=== PATIENT | male | born 1985 | race Caucasian/White ===

== ENCOUNTER 2018-07-21 15:43 | Inpatient (IN) | payer BC, OTHER ==
[2018-07-21 15:47] VITALS: BMI 19.5
--- NOTE | 2018-07-21 16:05 | ED PDOC ---
Arrival/HPI - General Time Seen by Provider: 07/21/18 15:45 Historian: Patient - History of Present Illness Narrative History of Present Illness (Text): 07/21/18 15:50 33 year old male, with no significant past medical history, who presents to the Emergency department after two seizures at 12:00 and 15:00. Patient notes he passed out at noon today and his mom brought him into the Emergency department after it happened the second time at 15:00. Patient is young, healthy, has no past medical history, not taking any medications and has no known drug allergies. Patient presented to the Emergency department for further evaluation. Patient denies any fever, chills, chest pain, shortness of breath, nausea, vomiting, diarrhea, urinary symptoms, back pain, neck pain, or any other complaints. Time/Duration: Prior to Arrival (seizures/syncopal episodes occurred at 12:00 and 15:00) Symptom Onset: Sudden Symptom Course: Unchanged Quality: Other Activities at Onset: Light Context: Home Past Medical History - Provider Review Nursing Documentation Reviewed: Yes Family/Social History - Physician Review Nursing Documentation Reviewed: Yes Family/Social History: No Known Family HX Allergies/Home Meds Allergies/Adverse Reactions: Allergies lactose Allergy (Verified 07/21/18 15:47) DIARRHEA Home Medications: Home Meds Medication Instructions Recorded Confirmed No Known Home Med 07/21/18 07/21/18 Review of Systems - Physician Review All systems were reviewed & negative as marked: Yes - Review of Systems Constitutional: Normal. absent: Fevers Eyes: Normal ENT: Normal Respiratory: Normal. absent: SOB, Cough Cardiovascular: Normal Gastrointestinal: Normal. absent: Diarrhea, Nausea, Vomiting Genitourinary Male: Normal Musculoskeletal: Normal. absent: Back Pain, Neck Pain Skin: Normal Neurological: Seizure. absent: Normal Endocrine: Normal Hemo/Lymphatic: Normal Psychiatric: Normal Physical Exam Vital Signs Reviewed: Yes Vital Signs Temp Pulse Resp BP Pulse Ox 07/21/18 19:13 95 H 18 121/71 100 07/21/18 16:56 122 H 26 H 99 07/21/18 16:13 99.3 F 97 H 18 108/66 97 07/21/18 15:49 99.3 F 97 H 18 108/66 97 Temperature: Afebrile Blood Pressure: Normal Pulse: Tachycardic Respiratory Rate: Normal Appearance: Positive for: Well-Appearing, Non-Toxic Pain Distress: None Mental Status: Positive for: Alert and Oriented X 3 Finger Stick Blood Glucose: 146 - Systems Exam Head: Present: Normocephalic, Other (multiple hematomas on forehead) Pupils: Present: PERRL Extroacular Muscles: Present: EOMI Conjunctiva: Present: Normal Mouth: Present: Moist Mucous Membranes Neck: Present: Normal Range of Motion Respiratory/Chest: Present: Clear to Auscultation, Good Air Exchange. No: Respiratory Distress, Accessory Muscle Use Cardiovascular: Present: Regular Rate and Rhythm, Normal S1, S2. No: Murmurs Abdomen: No: Tenderness, Distention, Peritoneal Signs Back: Present: Normal Inspection Upper Extremity: Present: Normal Inspection. No: Cyanosis, Edema Lower Extremity: Present: Normal Inspection. No: Edema Neurological: Present: GCS=15, CN II-XII Intact, Speech Normal Skin: Present: Warm, Dry, Other (multiple hematomas on forehead and one on his mandible). No: Rashes Psychiatric: Present: Alert, Oriented x 3, Normal Insight, Normal Concentration Medical Decision Making ED Course and Treatment: 07/21/18 15:45 Impression: 33 year old male presents to the Emergency department after two seizures at 12:00 and 15:00. Differential Diagnosis included but are not limited to: described as seizure, seems to be syncope Plan: -- Labs -- CT of head w/o contrast -- CT of maxillofacial w/o contrast -- EKG -- X-Ray of chest -- Reassess and disposition Progress Notes: EKG: Ordered, reviewed, and independently interpreted the EKG. Interpretation : NSR at [address] of maxillofacial reviewed by radiologist, shows: Dictator : Anca Davies MD Report Date : 07/21/2018 16:51:01 FINDINGS: NASAL BONES: No acute fracture. ORBITS: Both globes are symmetric. No acute fracture. PARANASAL SINUSES/ MASTOIDS: Mild polypoid mucosal thickening in the maxillary alveolus, worse on the right. The remaining included paranasal sinuses and mastoid air cells are clear. MAXILLA: No acute maxillofacial fracture. MANDIBLE/ TEMPOROMANDIBULAR JOINTS: No acute fracture or dislocation. SKULL BASE: Unremarkable. TEMPORAL BONES: Middle ears and mastoid grossly unremarkable. OTHER FINDINGS: None. IMPRESSION: No acute fracture or dislocation. CT of head reviewed by radiologist, shows: FINDINGS: HEMORRHAGE: No intracranial hemorrhage. BRAIN: Berger-white matter differentiation is preserved. There is no mass, mass effect or abnormal extra-axial fluid collection. There is no territorial infarction. The midline sagittal structures are normal. VENTRICLES: The ventricles are normal in size, shape and configuration. CALVARIUM: There is no calvarial fracture or extracranial soft tissue swelling. PARANASAL SINUSES: Predominantly clear. MASTOID AIR CELLS: Predominantly clear. OTHER FINDINGS: None. IMPRESSION: No acute intracranial abnormality. X-Ray of chest reviewed by radiologist, shows: Dictator : Anca Davies MD Report Date : 07/21/2018 16:45:57 FINDINGS: LUNGS: The lungs are well inflated and clear. PLEURA: No pneumothorax or pleural fluid seen. CARDIOVASCULAR: Normal. OSSEOUS STRUCTURES: No significant abnormalities. VISUALIZED UPPER ABDOMEN: Normal. OTHER FINDINGS: None. IMPRESSION: No active pulmonary disease. 07/21/2018 16:50 Patient had a seizure. Gave him Ativan and a gram of Keppra. Got consent from his mother to do a LP. 07/21/18 17:[address] Hernández, who requests patient to get a MRI done with and without contrast and administer acyclovir and valproic acid. Requests to perform a lumbar puncture for fluids. Mother was made aware and permission received from mother to perform LP. 07/21/18 19:40 PROCEDURE: LUMBAR PUNCTURE Performed by the emergency provider Time: 19:30 Consent: Informed consent, after discussion of the risks, benefits, and alternatives to the procedure, was obtained from mother. Timeout: A timeout to verify the correct patient, procedure, and site was performed immediately prior to the procedure. Indication: New onset of seizure Patient's position: Sitting up. Anesthesia: Local anesthesia: 1% lidocaine plain. Preparation: Patient was prepped and draped in the usual sterile fashion and sterile technique was used. The landmarks were identified. Fluid appearance: Fluid achieved in first attempt. Appears Clear. Post-procedure: Site cleansed and adhesive bandage applied. The patient tolerated the procedure well with no immediate complications. CSF was sent to lab for analysis. - Lab Interpretations Lab Results: 07/21/18 16:00 07/21/18 16:00 Lab Results 07/21/18 17:20: Total Creatine Kinase 797 H, CK-MB (CK-2) 3.5, CK-MB (CK-2) % Cancelled 07/21/18 16:00: Urine Color Straw, Urine Appearance Clear, Urine pH 6.0, Ur Specific [place] >= 1.030, Urine Protein 100 H, Urine Glucose (UA) Negative, Urine Ketones Trace H, Urine Blood Moderate H, Urine Nitrate Negative, Urine Bilirubin Negative, Urine Urobilinogen 0.2, Ur Leukocyte Esterase Negative, Urine RBC 10 - 15, Urine WBC 1 - 3, Ur Epithelial Cells 1 - 3, Urine Bacteria Mod, Urine Other Usperm 07/21/18 16:00: Alcohol, Quantitative < 10 07/21/18 16:00: Urine Opiates Screen Negative, Urine Methadone Screen Negative, Ur Barbiturates Screen Negative, Ur Phencyclidine Scrn Negative, Ur Amphetamines Screen Negative, U Benzodiazepines Scrn Negative, U Oth Cocaine Metabols Negative, U Cannabinoids Screen Negative 07/21/18 16:00: Sodium 143, Chloride 104, Potassium 4.1, Carbon Dioxide 24, Anion Gap 19, BUN 18, Creatinine 1.0, Est GFR ( Amer) > 60, Est GFR (Non- Af Amer) > 60, Random Glucose 143 H, Calcium 9.5, Phosphorus 2.1 L, Magnesium 2.1, Total Bilirubin 1.5 H, AST 147 H, ALT 124 H, Alkaline Phosphatase 80, Total Protein 7.5, Albumin 4.5, Globulin 3.0, Albumin/Globulin Ratio 1.5 07/21/18 16:00: pO2 36, VBG pH 7.36, VBG pCO2 46.0, VBG HCO3 26.0, VBG Total CO2 27.4, VBG O2 Sat (Calc) 78.2 H, VBG Base Excess 0.1, VBG Potassium 4.0, Sodium 139.0, Chloride 104.0, Glucose 148 H, Lactate 4.0 H*, FiO2 21.0, Venous Blood Potassium 4.0 07/21/18 16:00: PT 12.8 H, INR 1.12 07/21/18 16:00: WBC 10.4, RBC 4.54, Hgb 12.3 L, Hct 37.4 L, MCV 82.4, MCH 27.1, MCHC 32.9, RDW 13.2, Plt Count 185, MPV 10.1, Gran % 87.5 H, Lymph % (Auto) 5.4 L, Ellis % (Auto) 6.8 H, Eos % (Auto) 0.2 L, Baso % (Auto) 0.1, Gran # 9.08 H, Lymph # (Auto) 0.6 L, Ellis # (Auto) 0.7 H, Eos # (Auto) 0.0, Baso # (Auto) 0.01 - RAD Interpretation Radiology Orders: 07/21/18 15:48 HEAD W/O CONTRAST [CT] Stat CHEST ONE VIEW [RAD] Stat 07/21/18 15:55 MAXILLOFACIAL W/O CONTRAST [CT] Stat 07/21/18 17:19 BRAIN W & WO CONTRAST [MRI] Stat - EKG Interpretation Interpreted by ED Physician: Yes Type: 12 lead EKG - Medication Orders Current Medication Orders: Acyclovir 600 mg/ Sodium (Chloride) 100 mls @ 100 mls/hr IV Q8 JONI PRN Reason: Protocol Levetiracetam (Keppra 500mg Ivpb) 500 mg in 100 mls @ 400 mls/hr IVPB Q12 JONI Lorazepam (Ativan) 2 mg IVP Q2H PRN; Protocol PRN Reason: Seizure activity Discontinued Medications Sodium Chloride (Sodium Chloride 0.9%) 1,000 mls @ 999 mls/hr IV .Q1H1M STA Stop: 07/21/18 17:13 Last Admin: 07/21/18 16:46 Dose: 999 mls/hr eMAR Start Stop Document 07/21/18 16:46 GMD (Rec: 07/21/18 16:47 GMD [id number]) Intravenous Solution Start Date 07/21/18 Start Time 16:47 End Date 07/21/18 End time 17:48 Total Infusion Time 61 Levetiracetam 1,000 mg/ Sodium (Chloride) 110 mls @ 440 mls/hr IV ONCE ONE Stop: 07/21/18 17:16 Last Admin: 07/21/18 17:13 Dose: 440 mls/hr eMAR Start Stop Document 07/21/18 17:13 GMD (Rec: 07/21/18 17:13 [facility] [id number]) Intravenous Solution Start Date 07/21/18 Start Time 17:13 End Date 07/21/18 End time 17:28 Total Infusion Time 15 Acyclovir 500 mg/ Sodium (Chloride) 100 mls @ 100 mls/hr IV STAT STA PRN Reason: Protocol Stop: 07/21/18 18:13 Last Admin: 07/21/18 17:53 Dose: 100 mls/hr eMAR Start Stop Document 07/21/18 17:53 GMD (Rec: 07/21/18 17:54 GM [id number]) Intravenous Solution Start Date 07/21/18 Start Time 17:54 End Date 07/21/18 End time 18:54 Total Infusion Time 60 Valproate Sodium 945 mg/ (Sodium Chloride) 109.45 mls @ 100 mls/hr IVPB Q8 JONI Valproate Sodium 945 mg/ (Sodium Chloride) 109.45 mls @ 100 mls/hr IVPB ONCE ONE Stop: 07/21/18 19:05 Lorazepam (Ativan) 2 mg IVP ONCE ONE PRN Reason: Protocol Stop: 07/21/18 16:59 Last Admin: 07/21/18 16:59 Dose: 2 mg IVP Administration Document 07/21/18 16:59 GMD (Rec: 07/21/18 16:59 D [id number]) Charges for Administration # of IVP Administrations 1 - Scribe Statement The provider has reviewed the documentation as recorded by the Scribe Vero Cobian All medical record entries made by the Brendaibgilbert were at my direction and personally dictated by me. I have reviewed the chart and agree that the record accurately reflects my personal performance of the history, physical exam, medical decision making, and the department course for this patient. I have also personally directed, reviewed, and agree with the discharge instructions and disposition. Disposition/Present on Arrival - Present on Arrival Any Indicators Present on Arrival: No History of DVT/PE: No History of Uncontrolled Diabetes: No Urinary Catheter: No History of Decub. Ulcer: No History Surgical Site Infection Following: None - Disposition Have Diagnosis and Disposition been Completed?: Yes Diagnosis: New onset seizure Disposition Time: 19:00 Patient Plan: Admission Patient Problems: Current Active Problems Problem Status Onset New onset seizure Acute Condition: FAIR Referrals: Taz Toro, [Primary Care Provider] - Follow up with primary
[2018-07-21] MEDS ORDERED: Sodium Chloride 0.9% 1,000 ML IV STA (16:13)
[2018-07-21 16:27] LABS: VENOUS BLOOD GAS BASE EXCESS 0.1 mmol/L (0.0-2.0); VENOUS BLOOD GAS PO2 36 mm/Hg (30-55); VENOUS BLOOD PH 7.36 (7.32-7.43)
[2018-07-21 16:32] LABS: ALB/GLOB RATIO 1.5 (1.1-1.8); ALBUMIN 4.5 g/dL (3.0-4.8); ALT/SGPT 124 U/L (7-56); AST/SGOT 147 U/L (17-59); BLOOD UREA NITROGEN 18 mg/dL (7-21); CALCIUM 9.5 mg/dL (8.4-10.5); GFR NON-AFRICAN AMERICAN > 60
[2018-07-21 16:38] LABS: BASO # 0.01 K/mm3 (0.0-2.0); BASO % 0.1 % (0.0-3.0); EOS % 0.2 % (1.5-5.0); GRAN # 9.08 (1.4-6.5); GRAN % 87.5 % (50.0-68.0); HEMOGLOBIN 12.3 g/dL (14.0-18.0); LYMPH # 0.6 (1.2-3.4); LYMPH % 5.4 % (22.0-35.0); MEAN CELL VOLUME 82.4 fl (80.0-105.0); MEAN CORPUSCULAR HEMOGLOBIN 27.1 pg (25.0-35.0); MEAN CORPUSCULAR HGB CONC 32.9 g/dl (31.0-37.0); MEAN PLATELET VOLUME 10.1 fl (7.0-11.0); MONO # 0.7 (0.1-0.6); MONO % 6.8 % (1.0-6.0); RBC 4.54 10^6/uL (3.5-6.1); RED CELL DISTRIBUTION WIDTH 13.2 % (11.5-14.5); WHITE BLOOD COUNT 10.4 10^3/ul (4.5-11.0)
[2018-07-21 16:41] LABS: INR 1.12; PROTHROMBIN TIME 12.8 SECONDS (9.4-12.5)
--- NOTE | 2018-07-21 16:47 | RAD ---
Date of service: 07/21/2018 PROCEDURE: CHEST RADIOGRAPH, 1 VIEW HISTORY: Syncope COMPARISON: None available. FINDINGS: LUNGS: The lungs are well inflated and clear. PLEURA: No pneumothorax or pleural fluid seen. CARDIOVASCULAR: Normal. OSSEOUS STRUCTURES: No significant abnormalities. VISUALIZED UPPER ABDOMEN: Normal. OTHER FINDINGS: None. IMPRESSION: No active pulmonary disease.
[2018-07-21 16:48] LABS: BARBITURATES, UR NEGATIVE (NEGATIVE); BENZODIAZEPINES, UR NEGATIVE (NEGATIVE); OPIATES, UR NEGATIVE (NEGATIVE); PHENCYCLIDINE, UR NEGATIVE (NEGATIVE)
--- NOTE | 2018-07-21 16:50 | CT ---
Date of service: 07/21/2018 PROCEDURE: CT HEAD WITHOUT CONTRAST. HISTORY: Syncope COMPARISON: None available. TECHNIQUE: Axial computed tomography images were obtained through the head/brain without intravenous contrast. Radiation dose: Total exam DLP = 974.62 mGy-cm. This CT exam was performed using one or more of the following dose reduction techniques: Automated exposure control, adjustment of the mA and/or kV according to patient size, and/or use of iterative reconstruction technique. FINDINGS: HEMORRHAGE: No intracranial hemorrhage. BRAIN: Berger-white matter differentiation is preserved. There is no mass, mass effect or abnormal extra-axial fluid collection. There is no territorial infarction. The midline sagittal structures are normal. VENTRICLES: The ventricles are normal in size, shape and configuration. CALVARIUM: There is no calvarial fracture or extracranial soft tissue swelling. PARANASAL SINUSES: Predominantly clear. MASTOID AIR CELLS: Predominantly clear. OTHER FINDINGS: None. IMPRESSION: No acute intracranial abnormality.
--- NOTE | 2018-07-21 16:52 | CT ---
Date of service: 07/21/2018 PROCEDURE: CT MAXILLOFACIAL BONES WITHOUT CONTRAST HISTORY: Blunt Trauma COMPARISON: None available. TECHNIQUE: Contiguous axial CT images of the maxillofacial bones were obtained. Coronal and sagittal reformats were generated. Radiation dose: Total exam DLP = 831.34 mGy-cm. This CT exam was performed using one or more of the following dose reduction techniques: Automated exposure control, adjustment of the mA and/or kV according to patient size, and/or use of iterative reconstruction technique. FINDINGS: NASAL BONES: No acute fracture. ORBITS: Both globes are symmetric. No acute fracture. PARANASAL SINUSES/ MASTOIDS: Mild polypoid mucosal thickening in the maxillary alveolus, worse on the right. The remaining included paranasal sinuses and mastoid air cells are clear. MAXILLA: No acute maxillofacial fracture. MANDIBLE/ TEMPOROMANDIBULAR JOINTS: No acute fracture or dislocation. SKULL BASE: Unremarkable. TEMPORAL BONES: Middle ears and mastoid grossly unremarkable. OTHER FINDINGS: None. IMPRESSION: No acute fracture or dislocation.
[2018-07-21 17:01] LABS: URINE BILIRUBIN NEGATIVE (NEGATIVE); URINE BLOOD MODERATE (NEGATIVE); URINE GLUCOSE (UA) NEGATIVE (NEGATIVE); URINE LEUKOCYTE ESTERASE NEGATIVE Leu/uL (NEGATIVE); URINE PROTEIN 100 mg/dL (<30 mg/dL); URINE UROBILINOGEN 0.2 E.U./dL (<1 E.U./dL)
[2018-07-21] MEDS ORDERED: levETIRAcetam 1,000 MG in Sodium Chloride 0.9% 100 ML IV ONE (17:02)
[2018-07-21] MEDS ORDERED: Acyclovir 500 MG in Sodium Chloride 0.9% 100 ML IV STA (17:14)
[2018-07-21 17:28] LABS: URINE APPEARANCE CLEAR (CLEAR); URINE COLOR STRAW (YELLOW)
[2018-07-21 17:35] LABS: URINE BACTERIA MOD (NEG)
[2018-07-21] MEDS ORDERED: SODIUM CHLORIDE 0.9% IVPB ONE (18:00)
[2018-07-21] MEDS ORDERED: VALPROATE IVPB ONE (18:00)
[2018-07-21] MEDS ORDERED: Gadodiamide 287 MG/ML VIAL (15ML) IV ONE (18:26)
[2018-07-21 18:46] LABS: CK-MB 3.5 ng/mL (0.0-3.6)
[2018-07-21] MEDS ORDERED: Lidocaine PF 2% (5 ml) Inj (For Cardiac Arrhy) ONE (19:23)
[2018-07-21 19:42] LABS: FLUID TYPE SPINAL FLUID
[2018-07-21 20:09] LABS: VENOUS BLOOD GAS BASE EXCESS -0.6 mmol/L (0.0-2.0); VENOUS BLOOD GAS PO2 50 mm/Hg (30-55); VENOUS BLOOD PH 7.35 (7.32-7.43)
--- NOTE | 2018-07-21 20:27 | CP.PCM.HP ---
<Erasto Sharma - Last Filed: 07/21/18 20:24> History of Present Illness - History of Present Illness History of Present Illness: Erasto Sharma PGY1 H&P Mr. Jaime is a 33M with no PMH presenting to ED s/p 2 witnessed seizures. His mom witnessed 2 seizures 3 hours apart at home, when patient went stiff and fell down and hit his head. He denies previous h/o seizures and has no recollection of seizure episodes today. He reports feeling nauseous before episodes. He also reports history of cold-like illness this past week and subject fever. He denies any chest pain, dizziness, shortness of breath, numbness, tingling, abdominal pain, vomiting, diarrhea, dysuria. PMH: none PSxH: none FamH: mom- HTN, dad- parkinsons, DM SocH: denies tobacco, etoh, recreational drug use PMD: Dr. Toro Present on Admission - Present on Admission Any Indicators Present on Admission: No Review of Systems - Constitutional Constitutional: Fever. absent: Headache - EENT Eyes: absent: Blurred Vision - Cardiovascular Cardiovascular: absent: Chest Pain, Dyspnea - Respiratory Respiratory: absent: Dyspnea - Gastrointestinal Gastrointestinal: Nausea. absent: Abdominal Pain, Vomiting - Genitourinary Genitourinary: absent: Dysuria - Musculoskeletal Musculoskeletal: Stiffness. absent: Numbness, Tingling Past Patient History - Infectious Disease Hx of Infectious Diseases: None - Past Social History Smoking Status: Never Smoked - PSYCHIATRIC Hx Substance Use: No - SURGICAL HISTORY Hx Surgeries: No - ANESTHESIA Hx Anesthesia: No Meds Allergies/Adverse Reactions: Allergies Allergy/AdvReac Type Severity Reaction Status Date / Time lactose Allergy DIARRHEA Verified 07/21/18 15:47 Physical Exam - Constitutional Appears: No Acute Distress - Head Exam Additional comments: laceration and hematoma on L forehead - Eye Exam Pupil Exam: NORMAL ACCOMODATION - ENT Exam ENT Exam: Mucous Membranes Moist - Neck Exam Neck exam: Negative for: Meningismus, Tenderness - Respiratory Exam Respiratory Exam: Clear to Auscultation Bilateral, NORMAL BREATHING PATTERN - Cardiovascular Exam Cardiovascular Exam: REGULAR RHYTHM, +S1 - GI/Abdominal Exam GI & Abdominal Exam: Normal Bowel Sounds, Soft. absent: Distended, Tenderness - Extremities Exam Extremities exam: Positive for: normal inspection. Negative for: calf tenderness, pedal edema - Back Exam Back exam: NORMAL INSPECTION - Neurological Exam Neurological exam: Alert, CN II-XII Intact, Oriented x3 Additional comments: Kernig and Burdzinski signs negative - Psychiatric Exam Psychiatric exam: Flat Affect - Skin Skin Exam: Normal Color Results - Vital Signs Recent Vital Signs: Last Vital Signs Temp 99.3 F 07/21/18 16:13 Pulse 95 H 07/21/18 19:13 Resp 18 07/21/18 19:13 BP 121/71 07/21/18 19:13 Pulse Ox 100 07/21/18 19:13 - Labs Result Diagrams: 07/21/18 16:00 07/21/18 16:00 Labs: Laboratory Results - last 24 hr 07/21/18 07/21/18 07/21/18 19:30 19:30 19:53 pO2 50 VBG pH 7.35 VBG pCO2 46.0 VBG HCO3 25.4 VBG Total CO2 26.8 VBG O2 Sat (Calc) 89.6 H VBG Base Excess -0.6 L VBG Potassium 3.5 L Sodium 140.0 Chloride 108.0 H Glucose 110 Lactate 1.2 FiO2 21.0 Venous Blood Potassium 3.5 L Fluid Type Spinal fluid CSF Glucose 79 H Assessment & Plan - Assessment and Plan (Free Text) Assessment: 33M with no PMH presents s/p 2 witnessed seizures, admitted for r/o encephalopathy. Plan: Seizures: - 2 witnessed seizures at home, as per mom, no previous hx - 1 seizure in ED - CT head: no acute intracranial abnormality - CXR: no active pulmonary disease - MRI brain: f/u reading - afebrile - WBC: 10.4 - Glucose: 123 - UDS: negative - UA: mod blood, protein 100 (high) - LP: champagne color, glucose 79 (high), f/u remaining LP labs - f/u BCx, CSF Cx, UCx, throat Cx - f/u hep panel - f/u folate, B12 - f/u HSV, [place], VDRL, HIV, CMV labs - keppra 500 q12 - ativan 2 q2 IV PRN - acyclovir 600 q8h - seizure precautions - aspiration precautions - Neuro consulted, Dr. Dhillon - f/u recs - ID consulted, f/u recs Hypophosphatemia: - Phoph: 2.1 - replete - monitor Case reviewed and discussed with Dr. Gardner <Valencia Patel R - Last Filed: 07/22/18 13:28> Results - Vital Signs Recent Vital Signs: Last Vital Signs Temp 98.2 F 07/22/18 06:00 Pulse 103 H 07/22/18 06:00 Resp 18 07/22/18 06:00 BP 100/51 L 07/22/18 06:00 Pulse Ox 95 07/22/18 06:00 - Labs Result Diagrams: 07/22/18 06:30 07/22/18 06:30 Labs: Laboratory Results - last 24 hr 07/21/18 07/21/18 07/21/18 19:30 19:30 19:53 WBC RBC Hgb Hct MCV MCH MCHC RDW Plt Count MPV Gran % Lymph % (Auto) Armstrong % (Auto) Eos % (Auto) Baso % (Auto) Gran # Lymph # (Auto) Armstrong # (Auto) Eos # (Auto) Baso # (Auto) pO2 50 VBG pH 7.35 VBG pCO2 46.0 VBG HCO3 25.4 VBG Total CO2 26.8 VBG O2 Sat (Calc) 89.6 H VBG Base Excess -0.6 L VBG Potassium 3.5 L Sodium 140.0 Chloride 108.0 H Glucose 110 Lactate 1.2 FiO2 21.0 Potassium Carbon Dioxide Anion Gap BUN Creatinine Est GFR ( Amer) Est GFR (Non-Af Amer) Random Glucose Calcium Phosphorus Magnesium Total Bilirubin AST ALT Alkaline Phosphatase Total Creatine Kinase CK-MB (CK-2) CK-MB (CK-2) % Total Protein Albumin Globulin Albumin/Globulin Ratio Vitamin B12 Folate Venous Blood Potassium 3.5 L Fluid Type Spinal fluid CSF Volume 2 H CSF Appearance Clear/colorless CSF WBC 2.2 CSF RBC 1.0 H CSF Total Cell Counted 0 CSF Monos/Macrophages TEST NOT PERFORMED CSF Comment No CSF Glucose 79 H CSF Total Protein 55.0 07/22/18 07/22/18 07/22/18 06:30 06:30 06:30 WBC 12.4 H RBC 4.61 Hgb 12.3 L Hct 38.1 L MCV 82.6 MCH 26.7 MCHC 32.3 RDW 13.3 Plt Count 172 MPV 10.6 Gran % 79.0 H Lymph % (Auto) 8.6 L Armstrong % (Auto) 11.2 H Eos % (Auto) 1.0 L Baso % (Auto) 0.2 Gran # 9.77 H Lymph # (Auto) 1.1 L Armstrong # (Auto) 1.4 H Eos # (Auto) 0.1 Baso # (Auto) 0.02 pO2 VBG pH VBG pCO2 VBG HCO3 VBG Total CO2 VBG O2 Sat (Calc) VBG Base Excess VBG Potassium Sodium 144 Chloride 107 Glucose Lactate FiO2 Potassium 3.7 Carbon Dioxide 26 Anion Gap 14 BUN 15 Creatinine 0.8 Est GFR ( Amer) > 60 Est GFR (Non-Af Amer) > 60 Random Glucose 87 Calcium 9.0 Phosphorus 2.6 Magnesium 2.2 Total Bilirubin 2.5 H AST 102 H D ALT 93 H Alkaline Phosphatase 78 Total Creatine Kinase 2238 H CK-MB (CK-2) 5.8 H CK-MB (CK-2) % 0.3 L Total Protein 6.8 Albumin 3.8 Globulin 2.9 Albumin/Globulin Ratio 1.3 Vitamin B12 > 1000 H Folate 16.2 Venous Blood Potassium Fluid Type CSF Volume CSF Appearance CSF WBC CSF RBC CSF Total Cell Counted CSF Monos/Macrophages CSF Comment CSF Glucose CSF Total Protein Attending/Attestation - Attestation I have personally seen and examined this patient.: Yes I have fully participated in the care of the patient.: Yes I have reviewed all pertinent clinical information: Yes Notes (Text): Patient seen and examined by me at 5:00PM with resident 07/21/18. Case including HPI, physical exam, and assessment and plan discussed with resident. Agree with above with following additions/corrections. Patient is a 33-year-old male with no significant past medical history that presented to the emergency room status post witnessed seizures at home. Patient also had seizure while in the ED. Patient's mother at bedside. Patient lethargic and confused. History taken from patient's mother. Mother states that the morning patient came down stairs and mother noticed that patient had some abrasion and wounds on forehead. Patient was unsure how he these wounds. Later mother was helping patient make his bed when patient per mother started to "shake, twist his head, neck, and arms." Patient was brought to the emergency room at which time patient was witnessed to have another seizure. Per patient's mother patient was complaining of not feeling well since 07/19/2018. Patient had been complaining of cold-like symptoms. Patient had also been complaining of headache. Her patient's mother, patient lost displaced this morning and had a loss of appetite. Patient is currently denying any pain. Patient did bite his tongue. There was no urinary or bowel incontinence. Unable to obtain full review of systems from patient secondary to patient being lethargic and confused. In the emergency room, patient had lumbar puncture done. Allergies: Lactose Family history: Mother alive and has history of hypertension. Father alive and has type 2 diabetes and Parkinson's disease. Medications at home: [id number] multivitamin Physical exam: General: Lethargic but arousable, lying in bed in no acute distress HEENT: Positive abrasions and mild edema above bilateral eyebrows. Pupils equal reactive. No scleral icterus. Oropharynx is pink and moist. Positive right lateral tongue wound. Neck is supple. Hearing grossly intact. Ears and nose externally unremarkable Cardiovascular: Tachycardic S1, S2. No murmurs, rubs, or gallops appreciated Pulmonary: Normal respiratory effort. No rhonchi, rales or wheezing appreciated. Gastrointestinal: Soft, nondistended. Nontender. Positive bowel sounds all 4 quadrants, no guarding. Musculoskeletal: Normal range of motion all extremities, no calf tenderness, no edema appreciated. Central nervous system: Lethargic but arousable. Unable to do full neuro exam secondary to patient being lethargic and confused. Dermatologic: Skin warm and dry Assessment and plan: Patient is a 33-year-old male with no significant past medical history that presented to the emergency room status post witnessed seizures at home 1. New onset seizures. CT head per radiologist shows no acute intracranial abnormality. Maxillofacial CT per radiologist shows no acute fracture or dislocation. Patient had lumbar punch in the emergency room, follow-up results. Rule out infection. Follow up blood cultures, urine culture, and throat culture. Follow-up HIV. Follow-up CSF cultures. Started on Keppra 500 mg IV every 12 hours. Placed on Ativan 2 mg every 2 hours when necessary. Started on acyclovir 600 mg IV every 8 hours for possible encephalitis. Placed on seizure and aspiration precautions. Neurology consulted, follow-up recommendations. Case was discussed in detail with the patient and patient's at bedside regarding current diagnosis and treatment plan. 2. Hypophosphatemia. Will replete. Follow-up repeat labs in a.m. 3. Anemia. Unsure of baseline H&H. Continue to monitor for now. 4. Elevated LFTs. Unclear etiology. Follow up repeat labs in a.m. Follow-up hepatitis panel. 5. Elevated CPK. Likely secondary to seizure. Placed on IV fluids. Follow up repeat labs in a.m. Case was discussed in detail with patient's mother at bedside regarding current diagnosis and treatment plan.
[2018-07-21 20:29] LABS: CSF APPEARANCE CLEAR/COLORLESS (CLEAR); CSF VOLUME 2 mL (0-1)
[2018-07-21 20:30] LABS: CSF WBC 2.2 /uL (0.0-5.0)
[2018-07-21] MEDS ORDERED: SODIUM CHLORIDE 0.9% IVPB SCH (22:00)
[2018-07-21] MEDS ORDERED: levETIRAcetam 500 MG in Sodium Chloride 0.9% 100 ML IV SCH (22:00)
[2018-07-21] MEDS ORDERED: VALPROATE IVPB SCH (22:00)
[2018-07-21] MEDS: levETIRAcetam 500mg IVPB 500 MG/100 ML BAG IVPB SCH (22:12)
[2018-07-22 07:03] LABS: BASO # 0.02 K/mm3 (0.0-2.0); BASO % 0.2 % (0.0-3.0); EOS # 0.1 (0.0-0.7); GRAN # 9.77 (1.4-6.5); HEMOGLOBIN 12.3 g/dL (14.0-18.0); LYMPH # 1.1 (1.2-3.4); LYMPH % 8.6 % (22.0-35.0); MEAN CELL VOLUME 82.6 fl (80.0-105.0); MEAN CORPUSCULAR HEMOGLOBIN 26.7 pg (25.0-35.0); MEAN CORPUSCULAR HGB CONC 32.3 g/dl (31.0-37.0); MEAN PLATELET VOLUME 10.6 fl (7.0-11.0); MONO # 1.4 (0.1-0.6); MONO % 11.2 % (1.0-6.0); RBC 4.61 10^6/uL (3.5-6.1); RED CELL DISTRIBUTION WIDTH 13.3 % (11.5-14.5); WHITE BLOOD COUNT 12.4 10^3/ul (4.5-11.0)
[2018-07-22 07:25] LABS: ALB/GLOB RATIO 1.3 (1.1-1.8); ALBUMIN 3.8 g/dL (3.0-4.8); ALT/SGPT 93 U/L (7-56); AST/SGOT 102 U/L (17-59); BLOOD UREA NITROGEN 15 mg/dL (7-21); GFR NON-AFRICAN AMERICAN > 60
[2018-07-22 08:44] LABS: CK MB% 0.3 % (2.5-3.0); CK-MB 5.8 ng/mL (0.0-3.6)
--- NOTE | 2018-07-22 08:51 | MRI ---
Date of service: 07/21/2018 PROCEDURE: MRI BRAIN WITH AND WITHOUT CONTRAST HISTORY: nEW oNSET sEIZURE dISORDER COMPARISON: 07/21/2018 CT brain TECHNIQUE: Multiplanar, multisequence MR images of the brain were obtained with and without intravenous contrast enhancement. FINDINGS: HEMORRHAGE: None DWI: No evidence of an acute or early subacute infarction. BRAIN PARENCHYMA: No mass,mass effect or edema. No atrophy or chronic microvascular ischemic changes. ENHANCEMENT: No abnormal intracranial enhancement. VENTRICLES: Unremarkable. No hydrocephalus. CRANIUM: Unremarkable. ORBITS: Grossly unremarkable. PARANASAL SINUSES/MASTOIDS: Clear VASCULAR SYSTEM: Skull base flow voids intact. OTHER FINDINGS: None . IMPRESSION: Unremarkable pre and post contrast enhanced MRI of the brain.
[2018-07-22] MEDS: levETIRAcetam 500mg IVPB 500 MG/100 ML BAG IVPB SCH ×2 (09:42→21:10)
--- NOTE | 2018-07-22 11:25 | CARD ---
APPROVED REPORT Date of service: 07/21/2018 EKG Measurement Heart [id number] <Conclusion> Normal sinus rhythm Normal ECG
[2018-07-22 12:26] LABS: HEPATITIS B SURFACE AG Negative (NEGATIVE)
[2018-07-22 12:32] LABS: HEPATITIS A IGM NEGATIVE (NEGATIVE); HEPATITIS B CORE AB NEGATIVE (NEGATIVE)
[2018-07-22 12:44] LABS: HEPATITIS C ANTIBODY NEGATIVE (NEGATIVE)
[2018-07-22 13:05] LABS: FOLATE 16.2 ng/mL
--- NOTE | 2018-07-22 14:06 | CP.PCM.PN ---
<FredaKellen andersonkaren - Last Filed: 07/22/18 14:38> Subjective - Date & Time of Evaluation Date of Evaluation: 07/22/18 Time of Evaluation: 14:16 - Subjective Subjective: Myron Reynaga, PGY-1 Progress Note for Hospitalist Service Patient seen and examined at bedside this morning. No acute events overnight. Denies any seizures overnight and denies any current complaints including CP, SOB, abdominal pain, headaches, extremity weakness, numbness and tingling. Objective - Vital Signs/Intake and Output Vital Signs (last 24 hours): Temp Pulse Resp BP Pulse Ox 98.2 F 103 H 18 100/51 L 95 07/22/18 06:00 07/22/18 06:00 07/22/18 06:00 07/22/18 06:00 07/22/18 06:00 Intake and Output: 07/22/18 07/22/18 06:59 18:59 Intake Total 200 240 Balance 200 240 - Medications Medications: Current Medications Acyclovir 600 mg/ Sodium (Chloride) 100 mls @ 100 mls/hr IV Q8 JONI PRN Reason: Protocol Last Admin: 07/22/18 05:33 Dose: 100 mls/hr Levetiracetam (Keppra 500mg Ivpb) 500 mg in 100 mls @ 400 mls/hr IVPB Q12 JONI Last Admin: 07/22/18 09:42 Dose: 400 mls/hr Sodium Chloride (Sodium Chloride 0.9%) 1,000 mls @ 100 mls/hr IV .Q10H JONI Lorazepam (Ativan) 2 mg IVP Q2H PRN; Protocol PRN Reason: Seizure activity - Labs Labs: 07/22/18 06:30 07/22/18 06:30 PT 12.8 SECONDS (9.4-12.5) H 07/21/18 16:00 INR 1.12 07/21/18 16:00 - Constitutional Appears: No Acute Distress - Head Exam Head Exam: ATRAUMATIC Additional comments: left sided bruise noted on anterior forehead - Eye Exam Eye Exam: EOMI Pupil Exam: PERRL - ENT Exam ENT Exam: Mucous Membranes Moist - Neck Exam Neck Exam: Normal Inspection - Respiratory Exam Respiratory Exam: Clear to Ausculation Bilateral. absent: Respiratory Distress - Cardiovascular Exam Cardiovascular Exam: RRR, +S1, +S2 - GI/Abdominal Exam GI & Abdominal Exam: Soft, Normal Bowel Sounds. absent: Distended, Firm, Guarding - Extremities Exam Extremities Exam: Normal Inspection. absent: Joint Swelling - Neurological Exam Neurological Exam: Alert, Awake, CN II-XII Intact, Oriented x3 Neuro motor strength exam: Left Upper Extremity: 5, Right Upper Extremity: 5, Left Lower Extremity: 5, Right Lower Extremity: 5 - Skin Skin Exam: Normal Color, Warm Assessment and Plan - Assessment and Plan (Free Text) Assessment: This is a 33 year old male with no PMH presenting to the hospital for management of first time witnessed seizure of uncertain etiology. Plan: Seizures of unknown etiology -aspiration and seizure precautions -CT head, brain MRI, maxillofacial CT and CXR are unremarkable -EEG pending -keppra 500mg IV q12 -ativan prn -UDS is negative -U/A positive for protein, blood, trace ketones and moderate bacteria -Neurology on consult, Dr. Hernández Encephalitis -LP: significant for glucose of 79 -WBC today is 12.4 from 10.4, afebrile -[place], CMV, EBV, HSV, HIV, FTA-ABS, leptospira, and quantiferon pending -blood culture, throat culture, urine culture and CSF culture pending -hepatitis panel is negative -ID on consult, Dr. Malcolm Elevated lactate - resolved -Lactate on admission was 4, down to 1.2 on 07/21 -Currently on NS @ 100 Hypophosphatemia - resolved -Phosphate on admission was 2.1, today is 2.6 after replacement Case reviewed and discussed with attending, <Valencia Patel R - Last Filed: 07/23/18 07:39> Objective - Vital Signs/Intake and Output Vital Signs (last 24 hours): Temp Pulse Resp BP Pulse Ox 98.2 F 100 H 20 110/69 100 07/22/18 21:46 07/22/18 21:46 07/22/18 21:46 07/22/18 21:46 07/22/18 21:46 Intake and Output: 07/23/18 07/23/18 06:59 18:59 Intake Total 1690 Balance 1690 - Medications Medications: Current Medications Levetiracetam (Keppra 500mg Ivpb) 500 mg in 100 mls @ 400 mls/hr IVPB Q12 JONI Last Admin: 07/22/18 21:10 Dose: 400 mls/hr Sodium Chloride (Sodium Chloride 0.9%) 1,000 mls @ 100 mls/hr IV .Q10H JONI Last Admin: 07/23/18 04:21 Dose: Not Given Lorazepam (Ativan) 2 mg IVP Q2H PRN; Protocol PRN Reason: Seizure activity - Labs Labs: 07/23/18 06:00 07/23/18 06:00 PT 12.8 SECONDS (9.4-12.5) H 07/21/18 16:00 INR 1.12 07/21/18 16:00 Attending/Attestation - Attestation I have personally seen and examined this patient.: Yes I have fully participated in the care of the patient.: Yes I have reviewed all pertinent clinical information, including history, physical exam and plan: Yes Notes (Text): Patient seen and examined by me at 11:35AM with resident 07/22/18. Case including HPI, physical exam, and assessment and plan discussed with resident. Agree with above with following additions/corrections. Patient is a 33-year-old male with no significant past medical history that presented to the emergency room status post witnessed seizures at home. Patient states he is feeling much better today. He does not remember what happened yesterday. He states that he does have a sore throat but no difficulty swallowing. He denies any headaches or dizziness. No fevers or chills. No nausea , vomiting, or abdominal pain. No dysuria. No seizure activity over night. Physical exam: General: Awake and alert, lying in bed in no acute distress HEENT: Positive abrasions and mild edema above bilateral eyebrows. Pupils equal reactive. No scleral icterus. Oropharynx is pink and moist. Positive right lateral tongue wound. Neck is supple. Cardiovascular: Normal rhythm. Normal S1, S2. No murmurs, rubs, or gallops appreciated Pulmonary: Normal respiratory effort. No rhonchi, rales or wheezing appreciated. Gastrointestinal: Soft, nondistended. Nontender. Positive bowel sounds all 4 quadrants, no guarding. Musculoskeletal: Normal range of motion all extremities, no calf tenderness, no edema appreciated. Central nervous system: CN2-12 grossly intact. AAO x 3 Dermatologic: Skin warm and dry Assessment and plan: Patient is a 33-year-old male with no significant past medical history that presented to the emergency room status post witnessed seizures at home 1. New onset seizures. No more seizure activity. EEG pending. Continue Acyclovir and Keppra. MRI brain per radiologist shows unremarkable pre and post contrast enhanced MRI of brain. CT head per radiologist shows no acute intracranial abnormality. Maxillofacial CT per radiologist shows no acute fracture or dislocation. Patient had lumbar punch in the emergency room, follow- up results. Rule out infection. Blood cultures with no growth so far. Urine culture contaminated. Pending throat culture. Pending HIV. Pending CSF cultures. Continue Ativan 2 mg every 2 hours when necessary. Continue seizure and aspiration precautions. Neurology consulted, follow-up recommendations. 2. Hypophosphatemia. Resolved. Continue to monitor. 3. Anemia. Unsure of baseline H&H. Stable. Continue to monitor for now. 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 Continue IV fluids. Follow up repeat labs in AM. 5. Elevated LFTs. Unclear etiology. Downtrending. May be secondary to rhabdo. Hep panel negative. Continue to monitor. Case was discussed in detail with patient and patient's mother at bedside regarding current diagnosis and treatment plan.
[2018-07-22] MEDS: Sodium Chloride 0.9% 1,000 ML IV SCH (19:35)
[2018-07-23] MEDS: Sodium Chloride 0.9% 1,000 ML IV SCH (04:21)
[2018-07-23 06:55] LABS: BASO # 0.02 K/mm3 (0.0-2.0); BASO % 0.2 % (0.0-3.0); EOS # 0.2 (0.0-0.7); EOS % 2.5 % (1.5-5.0); GRAN # 5.75 (1.4-6.5); GRAN % 70.4 % (50.0-68.0); HEMOGLOBIN 12.2 g/dL (14.0-18.0); LYMPH # 1.2 (1.2-3.4); LYMPH % 15.1 % (22.0-35.0); MEAN CELL VOLUME 82.2 fl (80.0-105.0); MEAN CORPUSCULAR HEMOGLOBIN 27.1 pg (25.0-35.0); MEAN PLATELET VOLUME 10.5 fl (7.0-11.0); MONO % 11.8 % (1.0-6.0); RBC 4.5 10^6/uL (3.5-6.1); RED CELL DISTRIBUTION WIDTH 13.1 % (11.5-14.5); WHITE BLOOD COUNT 8.2 10^3/ul (4.5-11.0)
[2018-07-23 07:25] LABS: ALB/GLOB RATIO 1.3 (1.1-1.8); ALBUMIN 3.8 g/dL (3.0-4.8); ALT/SGPT 90 U/L (7-56); AST/SGOT 147 U/L (17-59); BLOOD UREA NITROGEN 11 mg/dL (7-21); CALCIUM 8.6 mg/dL (8.4-10.5); GFR NON-AFRICAN AMERICAN > 60
--- NOTE | 2018-07-23 08:29 | CON ---
Copied To: Alejo Hernández MD Attending MD: Alejo Hernández MD DATE: 07/22/2018 HISTORY OF PRESENT ILLNESS: This is a 33-year-old with no past medical history, came with two episodes of seizure and witnessed by the mother sitting next to him and the patient fell down and was having tonic-clonic movements with tongue bite and also has small hematoma on the forehead. PAST MEDICAL HISTORY: Not significant. SOCIAL HISTORY: Nothing significant. FAMILY HISTORY: Mother has high blood pressure, father with Parkinson's and diabetes. REVIEW OF SYSTEMS: A 10-point review of systems was negative. ALLERGIES: ALLERGIC TO LACTOSE. PHYSICAL EXAMINATION VITAL SIGNS: Blood pressure 120/70. HEENT: Normocephalic, atraumatic. NECK: Supple. NEUROLOGIC: Alert, awake, and oriented x3. No aphasia. Cranial nerves II through XII were tested. Pupils reactive. EOM intact. Visual han full. No facial asymmetry. Tongue midline. Motor examination: Moves all the extremities equally. Tone normal. Deep tendon reflexes are 1+. Both plantars are downgoing. Sensory appears intact. Cerebellar, gait, normal. Workup in progress. Spinal tap results are normal so far. Rest pending and MRI was normal. CAT scan was normal. PLAN: The patient is on Keppra. Workup in progress. We will continue. We will follow up. Alejo Hernández MD
--- NOTE | 2018-07-23 08:49 | CON ---
Copied To: Jame Denis MD Attending MD: Jame Denis MD DATE: 07/22/2018 HISTORY OF PRESENT ILLNESS: The patient was seen earlier today in [id number]. CHIEF COMPLAINT: New seizures x1 day duration. HISTORY OF PRESENT ILLNESS This is a 33-year-old male, [place] born, with no significant past medical history and who was admitted with new onset of seizures. Infectious Disease consultation is requested. Review of system reveals the patient's brother is at the bedside and the mother is at the bedside, who states that the patient was perfectly normal until the patient had seizures. He had not been having any headaches. No fevers, no change in mental status. No chest pain, shortness of breath. There is no cough, hemoptysis, diarrhea or constipation. No back pain, just a sudden onset of new seizures and the patient was admitted. REVIEW OF SYSTEMS: Reveals the patient had as stated with no pulmonary, no GI, no symptoms and no headaches or blurred vision. PAST MEDICAL HISTORY: The patient states he has no past medical history. No surgical history. MEDICATIONS AT HOME: He takes no medications at home. His family is originally from [facility]. He was last in [place] [facility] 3 years ago. He has no exposure to any pets. He was born in [facility] and he does not smoke or drink. No drugs. He lives with his mother. PHYSICAL EXAMINATION: GENERAL: The patient is in bed, awake and alert. No acute distress, answering questions appropriately. VITAL SIGNS: Temperature of 98, blood pressure is 120/70, respiratory rate of 18. It was up to 26 at one point, heart rate of 103. HEENT: Examination of HEENT is unremarkable. NECK: Supple. LUNGS: Have decreased breath sounds. HEART: Normal S1, S2. ABDOMEN: Nontender. No organomegaly. No rebound or guarding. No masses. LABORATORY DATA: Reveals a white count was 10,000, is up to 12,400. Sed rate of 23. Coagulation is unremarkable. Blood gases are noted. Chemistries are reviewed. The patient does have a CPK elevation and total bili is elevated and LFTs are elevated and urinalysis is noted and the patient had spinal fluid which showed 2 wbc's and glucose is 79, protein of 55 and toxicology is noted and serology, RPR is negative. Hepatitis profile is negative. The patient's HIV is pending and microbiology reveals the patient's blood cultures are negative. CSF cultures are negative and urine cultures has multiple species, has contamination. Repeat specimens and the patient had an MRI of the brain which was with and without contrast, which was completely negative MRI pre and post contrast enhanced, and the patient also had a CAT scan of the maxillofacial and a CAT scan of the head which was negative and a chest x-ray which was negative. 's progress note is noted. ASSESSMENT AND PLAN: A 33-year-old male with systemic inflammatory response syndrome and new seizures, negative MRI, negative cultures, negative spinal fluid. No evidence of herpes encephalitis in this patient who has no fevers. No headaches and does not have any change in mental status and new onset. We will discontinue the acyclovir and we will check on the patient's human immunodeficiency virus and a CSF cultures and final cultures and the remainder of the workup which has been ordered and waiting for Neurology. An electroencephalogram is pending. We will follow with you. Jame Denis MD
--- NOTE | 2018-07-23 09:00 | CP.PCM.PN ---
Subjective - Date & Time of Evaluation Date of Evaluation: 07/23/18 Time of Evaluation: 09:00 - Subjective Subjective: PGY3 ID Progress note for Dr. Denis Objective - Vital Signs/Intake and Output Vital Signs (last 24 hours): Temp Pulse Resp BP Pulse Ox 98.2 F 100 H 20 110/69 100 07/22/18 21:46 07/22/18 21:46 07/22/18 21:46 07/22/18 21:46 07/22/18 21:46 Intake and Output: 07/23/18 07/23/18 06:59 18:59 Intake Total 1690 Balance 1690 - Medications Medications: Current Medications Levetiracetam (Keppra 500mg Ivpb) 500 mg in 100 mls @ 400 mls/hr IVPB Q12 [facility] Last Admin: 07/22/18 21:10 Dose: 400 mls/hr Sodium Chloride (Sodium Chloride 0.9%) 1,000 mls @ 100 mls/hr IV .Q10H JONI Last Admin: 07/23/18 04:21 Dose: Not Given Lorazepam (Ativan) 2 mg IVP Q2H PRN; Protocol PRN Reason: Seizure activity - Labs Labs: 07/23/18 06:00 07/23/18 06:00 PT 12.8 SECONDS (9.4-12.5) H 07/21/18 16:00 INR 1.12 07/21/18 16:00
[2018-07-23 09:25] LABS: CK-MB 3.6 ng/mL (0.0-3.6)
[2018-07-23] MEDS: levETIRAcetam 500mg IVPB 500 MG/100 ML BAG IVPB SCH ×2 (10:16→21:30)
--- NOTE | 2018-07-23 14:28 | PN ---
Copied To: Jame Denis MD Attending MD: Jame Denis MD DATE: 07/23/2018 SUBJECTIVE: The patient seen earlier this morning in room 563, bed 1. The patient is in no acute distress, nontoxic, clinically stable. PHYSICAL EXAMINATION: VITAL SIGNS: Temperature of 98, blood pressure is 111/60, respiratory rate of 18, and heart rate of 91. HEENT: Examination is unremarkable. NECK: Supple. LUNGS: Decreased breath sounds. HEART: Normal S1, S2. ABDOMEN: Soft, nontender. DATA: Laboratory examination reveals the patient's white count of 8.2, hemoglobin of 12, 70% granulocytosis. The patient's sed rate is 23. Coagulation is noted and chemistries reveal the BUN of 11, creatinine of 0.8. CPK is elevated at 10,000. C-reactive protein is 21. Urinalysis is noted. CSF fluid is noted, protein of 55, glucose 79, WBC is 2. The patient's Elke-Soni virus serology is pending, RPR is negative, hepatitis profile is negative, herpes DNA PCR is pending, and antibody not done with negative blood cultures and CSF cultures pending. ASSESSMENT AND PLAN: A 33-year-old male is born in [facility] with no significant past medical history. He was admitted with new onset of seizures, no evidence of new infection, now off of acyclovir with a negative MRI of the brain with contrast makes a herpes encephalitis very unlikely in a patient who is completely awake and alert, and was perfectly normal until he had the seizures. We will discuss with Neurology a possible EEG. Jame Denis MD
--- NOTE | 2018-07-23 15:52 | EEG ---
Copied To: Chivo Hernández MD Attending MD: Chivo Hernández MD DATE: 07/23/2018 ELECTROENCEPHALOGRAM CONDITION OF THE RECORDING: Drowsy. DIAGNOSIS: Seizure. MEDICATIONS: Reviewed by nurse per reconciliation sheet. INTERPRETATION: This is a 16-channel international recording. The background activity of this tracing was composed of 6 to 7 cycles per second. There was small amount of beta activity of 16 to 20 cycles per second seen in this recording. There was increased amount of theta activity of 5 to 7 cycles per second seen in this tracing. Drowsiness was characterized by the mixed beta and theta activities. The sleep was characterized by vertex transient waves, sleep spindles and bilateral slowing. Photic stimulation showed no changes in the tracing. No paroxysmal activities noted in this recording. CONCLUSION: Abnormal EEG due to presence of mild diffuse slowing throughout the recording consistent with mild bilateral cerebral dysfunction, but no evidence of any epileptiform activity. Please clinically correlate. Chivo Hernández MD
--- NOTE | 2018-07-23 16:49 | CP.PCM.PN ---
<FredaKellen andersonkaren - Last Filed: 07/23/18 16:45> Subjective - Date & Time of Evaluation Date of Evaluation: 07/23/18 Time of Evaluation: 16:45 - Subjective Subjective: Myron Reynaga, PGY-1 Progress Note for Hospitalist Service Patient seen and examined at bedside this morning. No acute events overnight. Sore throat is improved. Denies CP, SOB, abdominal pain, headaches, numbness, tingling, swelling in extremities and urinary complaints. Objective - Vital Signs/Intake and Output Vital Signs (last 24 hours): Temp Pulse Resp BP Pulse Ox 98.2 F 86 18 108/71 100 07/23/18 14:00 07/23/18 14:00 07/23/18 14:00 07/23/18 14:00 07/23/18 14:00 Intake and Output: 07/23/18 07/23/18 06:59 18:59 Intake Total 1690 Balance 1690 - Medications Medications: Current Medications Levetiracetam (Keppra 500mg Ivpb) 500 mg in 100 mls @ 400 mls/hr IVPB Q12 [facility] Last Admin: 07/23/18 10:16 Dose: 400 mls/hr Sodium Chloride (Sodium Chloride 0.9%) 1,000 mls @ 100 mls/hr IV .Q10H [facility] Last Admin: 07/23/18 04:21 Dose: Not Given Lorazepam (Ativan) 2 mg IVP Q2H PRN; Protocol PRN Reason: Seizure activity - Labs Labs: 07/23/18 06:00 07/23/18 06:00 PT 12.8 SECONDS (9.4-12.5) H 07/21/18 16:00 INR 1.12 07/21/18 16:00 - Constitutional Appears: No Acute Distress - Head Exam Head Exam: ATRAUMATIC, NORMAL INSPECTION - Eye Exam Eye Exam: EOMI Pupil Exam: PERRL - Respiratory Exam Respiratory Exam: Clear to Ausculation Bilateral. absent: Respiratory Distress - Cardiovascular Exam Cardiovascular Exam: REGULAR RHYTHM, +S1, +S2 - GI/Abdominal Exam GI & Abdominal Exam: Normal Bowel Sounds. absent: Firm, Guarding - Neurological Exam Neurological Exam: Alert, Awake, CN II-XII Intact, Oriented x3 Neuro motor strength exam: Left Upper Extremity: 5, Right Upper Extremity: 5, Left Lower Extremity: 5, Right Lower Extremity: 5 - Skin Skin Exam: Normal Color, Warm Assessment and Plan - Assessment and Plan (Free Text) Assessment: This is a 33 year old male with no PMH presenting to the hospital for management of first time witnessed seizure at home of uncertain etiology. Patient states he feels well and his sore throat symptoms have improved. He has not had a seizure since admission and denies headaches. Will follow up with neurology recommendations. Plan: Seizures of unknown etiology -aspiration and seizure precautions -CT head, brain MRI, maxillofacial CT and CXR are unremarkable at this time -EEG shows abnormal EEG due to presence of mild diffuse slowing throughout the recording consistent with mild B/L cerebral dysfunction, but no evidence of any epileptiform activity. -continue keppra 500mg IV q12 -continue ativan prn -UDS is negative -U/A positive for protein, blood, trace ketones and moderate bacteria -Neurology on consult, Dr. Hernández Encephalitis -LP: significant for glucose of 79 -WBC today is 8.2 today from 12.4, afebrile -EBV level is elevated -HIV 4th gen is non reactive -[place], CMV, HSV, FTA-ABS, leptospira, and quantiferon pending -blood culture, throat culture, urine culture and CSF culture pending -hepatitis panel is negative -stopped acyclovir -ID on consult, Dr. Malcolm Elevated [place] [address] [place] 2238 yesterday -patient and staff deny seizure activity over last day -will continue to monitor Elevated lactate - resolved -Lactate on admission was 4, down to 1.2 on 07/21 -Currently on NS @ 100 Case reviewed and discussed with attending, <Valencia Patel R - Last Filed: 07/24/18 08:11> Objective - Vital Signs/Intake and Output Vital Signs (last 24 hours): Temp Pulse Resp BP Pulse Ox 97.5 F L 93 H 20 99/60 L 95 07/23/18 22:31 07/23/18 22:31 07/23/18 22:31 07/23/18 22:31 07/23/18 22:31 Intake and Output: 07/24/18 07/24/18 06:59 18:59 Intake Total 240 Balance 240 - Medications Medications: Current Medications Levetiracetam (Keppra 500mg Ivpb) 500 mg in 100 mls @ 400 mls/hr IVPB Q12 [facility] Last Admin: 07/23/18 21:30 Dose: 400 mls/hr Sodium Chloride (Sodium Chloride 0.9%) 1,000 mls @ 150 mls/hr IV .Q6H40M [facility]ONI Lorazepam (Ativan) 2 mg IVP Q2H PRN; Protocol PRN Reason: Seizure activity - Labs Labs: 07/24/18 06:30 07/24/18 06:15 PT 12.8 SECONDS (9.4-12.5) H 07/21/18 16:00 INR 1.12 07/21/18 16:00 Attending/Attestation - Attestation I have personally seen and examined this patient.: Yes I have fully participated in the care of the patient.: Yes I have reviewed all pertinent clinical information, including history, physical exam and plan: Yes Notes (Text): Patient seen and examined by me at 1:15 PM with resident 07/23/18. Case including HPI, physical exam, and assessment and plan discussed with resident. Agree with above with following additions/corrections. Patient is a 33-year-old male with no significant past medical history that presented to the emergency room status post witnessed seizures at home. Patient states he is feels the same as yesterday. Sore throat has improved. No difficutly swallowing. No headaches or dizziness. No chest pain or shortness of breath. No fevers or chills. No nausea, vomiting, or abdominal pain. No dysuria. No seizure activity over night. Physical exam: General: Awake and alert, lying in bed in no acute distress HEENT: Positive abrasions bilateral eyebrows. Pupils equal reactive. No scleral icterus. Oropharynx is pink and moist. Positive right lateral tongue wound. Neck is supple. Cardiovascular: Normal rhythm. Normal S1, S2. No murmurs, rubs, or gallops appreciated Pulmonary: Normal respiratory effort. No rhonchi, rales or wheezing appreciated. Gastrointestinal: Soft, nondistended. Nontender. Positive bowel sounds all 4 quadrants, no guarding. Musculoskeletal: Normal range of motion all extremities, no calf tenderness, no edema appreciated. Central nervous system: CN2-12 grossly intact. AAO x 3 Dermatologic: Skin warm and dry Assessment and plan: Patient is a 33-year-old male with no significant past medical history that presented to the emergency room status post witnessed seizures at home 1. New onset seizures. No more seizure activity. EEG results pending. Continue Keppra. Acyclovir stopped. S/P lumbar puncture. Blood cultures with no growth so far. Urine culture contaminated. Pending throat culture. HIV negative. RPR negative. CSF cultures with no growth so far. Continue Ativan 2 mg every 2 hours when necessary. Continue seizure and aspiration precautions. Neurology following, recommendations appreciated. MRI brain per radiologist shows unremarkable pre and post contrast enhanced MRI of brain. CT head per radiologist shows no acute intracranial abnormality. Maxillofacial CT per radiologist shows no acute fracture or dislocation. 2. Hypophosphatemia. Resolved. Continue to monitor. 3. Anemia. Unsure of baseline H&H. Stable. Continue to monitor for now. 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 Continue IV fluids. 5. Elevated LFTs. Unclear etiology. Uptrending. May be secondary to rhabdo. Hep panel negative. Continue to monitor. Case was discussed in detail with patient and patient's mother at bedside regarding current diagnosis and treatment plan.
[2018-07-24 07:00] LABS: BASO # 0.02 K/mm3 (0.0-2.0); BASO % 0.2 % (0.0-3.0); EOS # 0.3 (0.0-0.7); EOS % 2.5 % (1.5-5.0); GRAN # 6.77 (1.4-6.5); HEMOGLOBIN 12.9 g/dL (14.0-18.0); LYMPH # 1.5 (1.2-3.4); MEAN CELL VOLUME 82.5 fl (80.0-105.0); MEAN CORPUSCULAR HEMOGLOBIN 26.8 pg (25.0-35.0); MEAN CORPUSCULAR HGB CONC 32.5 g/dl (31.0-37.0); MONO # 1.3 (0.1-0.6); MONO % 13.3 % (1.0-6.0); RBC 4.81 10^6/uL (3.5-6.1); WHITE BLOOD COUNT 9.8 10^3/ul (4.5-11.0)
[2018-07-24 07:35] LABS: ALB/GLOB RATIO 1.3 (1.1-1.8); ALBUMIN 4.1 g/dL (3.0-4.8); ALT/SGPT 126 U/L (7-56); AST/SGOT 302 U/L (17-59); BLOOD UREA NITROGEN 11 mg/dL (7-21); CALCIUM 9.3 mg/dL (8.4-10.5); GFR NON-AFRICAN AMERICAN > 60
[2018-07-24] MEDS ORDERED: Sodium Chloride 0.9% 1,000 ML IV SCH ×2 (08:06→18:00)
[2018-07-24] MEDS: levETIRAcetam 500mg IVPB 500 MG/100 ML BAG IVPB SCH ×2 (09:55→21:45)
[2018-07-24 10:45] LABS: CK-MB 3.9 ng/mL (0.0-3.6)
[2018-07-24] MEDS: Sodium Chloride 0.9% 1,000 ML IV SCH ×2 (12:54→17:40)
[2018-07-24 13:22] LABS: SPECIMEN SOURCE CSF
--- NOTE | 2018-07-24 17:12 | CP.PCM.PN ---
<Myron Reynaga - Last Filed: 07/24/18 17:09> Subjective - Date & Time of Evaluation Date of Evaluation: 07/24/18 Time of Evaluation: 17:09 - Subjective Subjective: Myron Reynaga, PGY-1 Progress Note for Hospitalist Service Patient seen and examined at bedside this morning. No acute events overnight. States his store throat has resolved but says he has new neck soreness. Denies headache, CP, SOB, abdominal pain, urinary complaints, swelling and fevers. Objective - Vital Signs/Intake and Output Vital Signs (last 24 hours): Temp Pulse Resp BP Pulse Ox 97.6 F 84 18 106/66 100 07/24/18 14:35 07/24/18 14:35 07/24/18 14:35 07/24/18 14:35 07/24/18 14:35 Intake and Output: 07/24/18 07/24/18 06:59 18:59 Intake Total 240 Balance 240 - Medications Medications: Current Medications Levetiracetam (Keppra 500mg Ivpb) 500 mg in 100 mls @ 400 mls/hr IVPB Q12 [facility] Last Admin: 07/24/18 09:55 Dose: 400 mls/hr Sodium Chloride (Sodium Chloride 0.9%) 1,000 mls @ 200 mls/hr IV .Q5H [facility]I Stop: 07/24/18 18:00 Last Admin: 07/24/18 12:54 Dose: 200 mls/hr Sodium Chloride (Sodium Chloride 0.9%) 1,000 mls @ 150 mls/hr IV .Q6H40M [facility]I Lorazepam (Ativan) 2 mg IVP Q2H PRN; Protocol PRN Reason: Seizure activity Tramadol HCl (Ultram) 50 mg PO TID PRN PRN Reason: Pain, severe (8-10) Last Admin: 07/24/18 12:53 Dose: 50 mg - Labs Labs: 07/24/18 06:30 07/24/18 06:15 PT 12.8 SECONDS (9.4-12.5) H 07/21/18 16:00 INR 1.12 07/21/18 16:00 - Head Exam Head Exam: ATRAUMATIC, NORMOCEPHALIC - Eye Exam Eye Exam: EOMI Pupil Exam: PERRL - ENT Exam ENT Exam: Mucous Membranes Moist - Neck Exam Neck Exam: absent: Lymphadenopathy - Respiratory Exam Respiratory Exam: Clear to Ausculation Bilateral. absent: Respiratory Distress - Cardiovascular Exam Cardiovascular Exam: RRR, +S1, +S2 - GI/Abdominal Exam GI & Abdominal Exam: Normal Bowel Sounds. absent: Guarding, Rigid - Extremities Exam Extremities Exam: Normal Inspection. absent: Calf Tenderness - Neurological Exam Neurological Exam: Alert, CN II-XII Intact, Oriented x3 Neuro motor strength exam: Left Upper Extremity: 5, Right Upper Extremity: 5, Left Lower Extremity: 5, Right Lower Extremity: 5 - Skin Skin Exam: Dry, Warm Assessment and Plan - Assessment and Plan (Free Text) Assessment: This is a 33 year old male with no PMH presenting to the hospital for management of first time witnessed seizure at home of uncertain etiology. Currently awaiting ID recommendation for elevated EBV level. Plan: Seizures of unknown etiology -warm compresses given today -vital signs q8 -aspiration and seizure precautions -CT head, brain MRI, maxillofacial CT and CXR are unremarkable at this time -EEG shows abnormal EEG due to presence of mild diffuse slowing throughout the recording consistent with mild B/L cerebral dysfunction, but no evidence of any epileptiform activity. -continue keppra 500mg IV q12 -continue ativan prn -UDS is negative -U/A positive for protein, blood, trace ketones and moderate bacteria -Neurology on consult, Dr. Hernández Rhabomyolysis -CPK today is 24,354 from 10,620 yesterday and 797 on admission -We are hydrating patient aggresively, NS @ 200 for 6 hours, will titrate down to 150 after that -will continue to monitor Encephalitis -given motrin 400mg overnight -LP: significant for glucose of 79 -WBC today is 9.8 today from 8.2 yesterday, afebrile -FATOU is positive, high -EBV level is elevated, suggestive of past [place] virus infection -HIV 4th gen is non reactive -[place], CMV, HSV, FTA-ABS, leptospira, and quantiferon pending -blood culture, throat culture, urine culture and CSF culture pending -hepatitis panel is negative -ID on consult, Dr. Malcolm Elevated lactate - resolved -Lactate on admission was 4, down to 1.2 on 07/21 -Currently on NS @ 100 Case seen with, reviewed and discussed with attending, <Valencia Patel R - Last Filed: 07/25/18 13:24> Objective - Vital Signs/Intake and Output Vital Signs (last 24 hours): Temp Pulse Resp BP Pulse Ox 97.5 F L 95 H 20 105/62 95 07/25/18 06:00 07/25/18 06:00 07/25/18 06:00 07/25/18 06:00 07/25/18 06:00 Intake and Output: 07/25/18 07/25/18 06:59 18:59 Intake Total 920 Balance 920 - Medications Medications: Current Medications Levetiracetam (Keppra 500mg Ivpb) 500 mg in 100 mls @ 400 mls/hr IVPB Q12 [facility] Last Admin: 07/25/18 10:12 Dose: 400 mls/hr Sodium Chloride (Sodium Chloride 0.9%) 1,000 mls @ 200 mls/hr IV .Q5H [facility]ONI Lorazepam (Ativan) 2 mg IVP Q2H PRN; Protocol PRN Reason: Seizure activity - Labs Labs: 07/25/18 06:30 07/25/18 06:30 PT 12.8 SECONDS (9.4-12.5) H 07/21/18 16:00 INR 1.12 07/21/18 16:00 Attending/Attestation - Attestation I have personally seen and examined this patient.: Yes I have fully participated in the care of the patient.: Yes I have reviewed all pertinent clinical information, including history, physical exam and plan: Yes Notes (Text): Patient seen and examined by me at 12PM with resident 07/24/18. Case including HPI, physical exam, and assessment and plan discussed with resident. Agree with above with following additions/corrections. Patient is a 33-year-old male with no significant past medical history that presented to the emergency room status post witnessed seizures at home. Patient states he feels ok. Complains of lower neck pain today. States that it is constant and cramping in nature. Its on both sides of his neck. No associated headache. Sore throat has improved. No difficutly swallowing. No dizziness. No chest pain or shortness of breath. No fevers or chills. No nausea , vomiting, or abdominal pain. No dysuria. No seizure activity over night. Physical exam: General: Awake and alert, lying in bed in no acute distress HEENT: Positive healing abrasion above left eyebrow. Pupils equal reactive. No scleral icterus. Oropharynx is pink and moist. Positive right lateral tongue wound. Neck is supple. Cardiovascular: Normal rhythm. Normal S1, S2. No murmurs, rubs, or gallops appreciated Pulmonary: Normal respiratory effort. No rhonchi, rales or wheezing appreciated. Gastrointestinal: Soft, nondistended. Nontender. Positive bowel sounds all 4 quadrants, no guarding. Musculoskeletal: Normal range of motion all extremities, no calf tenderness, no edema appreciated. Central nervous system: CN2-12 grossly intact. AAO x 3 Dermatologic: Skin warm and dry Assessment and plan: Patient is a 33-year-old male with no significant past medical history that presented to the emergency room status post witnessed seizures at home 1. 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 Continue IV fluids. Follow up repeat labs in AM. Monitor renal function. 2. Elevated LFTs. Uptrending. Likely secondary to rhabdo. Hep panel negative. Continue to monitor. 3. New onset seizures. No more seizure activity. EEG per neurologist shows presence of mild diffuse slowing throughout the recording consistend with mild bilateral cerebral dysfunction. Continue Keppra. Acyclovir stopped. Patient does not have encephalitis. S/P lumbar puncture. Blood cultures with no growth so far. Urine culture contaminated. Throat culture negative. HIV negative. RPR negative. CSF cultures with no growth so far. Continue Ativan 2 mg every 2 hours when necessary. Continue seizure and aspiration precautions. Neurology following, recommendations appreciated. MRI brain per radiologist shows unremarkable pre and post contrast enhanced MRI of brain. CT head per radiologist shows no acute intracranial abnormality. Maxillofacial CT per radiologist shows no acute fracture or dislocation. 4. Hypophosphatemia. Resolved. Continue to monitor. 5. Anemia. Unsure of baseline H&H. Stable. Continue to monitor for now. Case was discussed in detail with patient and patient's mother at bedside regarding current diagnosis and treatment plan.
--- NOTE | 2018-07-25 01:44 | PN ---
Copied To: Jame Deins MD Attending MD: Jame Denis MD DATE: 07/24/2018 SUBJECTIVE: Patient is seen earlier this morning. No fevers, no chills, no nausea. PHYSICAL EXAMINATION: VITAL SIGNS: Temperature is 97, blood pressure is 120/70, respiratory rate of 18. HEENT: Unremarkable. NECK: Supple. LUNGS: Decreased breath sounds. HEART: Normal S1, S2. ABDOMEN: Soft, nontender. LABORATORY DATA: Laboratory examination reveals a white count of 9.8, hemoglobin of 12, platelet of 185. Chemistries reveal a BUN of 11, creatinine of 0.9. Urinalysis is noted. Spinal fluid is noted and DNA is positive. QuantiFERON is negative. Herpes DNA PCR is not detected for type 1 and type 2 in PCR. MRI is negative. ASSESSMENT AND PLAN: This is a 33-year-old male born in [facility] with a new onset of seizures and no evidence of new infection, negative MRI with and without contrast, negative herpes DNA with CSF negative cultures. Off of acyclovir now and off of antibiotics, awaiting for an EEG and Neurology input regarding his new onset of seizures. We will follow with you. Jame Denis MD
[2018-07-25 07:22] LABS: BASO # 0.04 K/mm3 (0.0-2.0); BASO % 0.5 % (0.0-3.0); EOS # 0.2 (0.0-0.7); EOS % 2.8 % (1.5-5.0); GRAN # 5.29 (1.4-6.5); GRAN % 67.5 % (50.0-68.0); HEMOGLOBIN 11.8 g/dL (14.0-18.0); LYMPH # 1.4 (1.2-3.4); LYMPH % 17.8 % (22.0-35.0); MEAN CORPUSCULAR HEMOGLOBIN 26.6 pg (25.0-35.0); MEAN CORPUSCULAR HGB CONC 32.4 g/dl (31.0-37.0); MEAN PLATELET VOLUME 11.1 fl (7.0-11.0); MONO # 0.9 (0.1-0.6); MONO % 11.4 % (1.0-6.0); RBC 4.44 10^6/uL (3.5-6.1); RED CELL DISTRIBUTION WIDTH 12.8 % (11.5-14.5); WHITE BLOOD COUNT 7.8 10^3/ul (4.5-11.0)
[2018-07-25 08:03] LABS: ALB/GLOB RATIO 1.3 (1.1-1.8); ALBUMIN 3.9 g/dL (3.0-4.8); ALT/SGPT 131 U/L (7-56); AST/SGOT 351 U/L (17-59); BLOOD UREA NITROGEN 7 mg/dL (7-21); CALCIUM 9.1 mg/dL (8.4-10.5); GFR NON-AFRICAN AMERICAN > 60
[2018-07-25] MEDS: levETIRAcetam 500mg IVPB 500 MG/100 ML BAG IVPB SCH ×2 (10:12→21:02)
--- NOTE | 2018-07-25 11:14 | CP.PCM.PN ---
<JuhiMyron - Last Filed: 07/25/18 11:11> Subjective - Date & Time of Evaluation Date of Evaluation: 07/25/18 Time of Evaluation: 11:11 - Subjective Subjective: Myron Reynaga, PGY-1 Progress Note for Hospitalist Service Patient seen and examined this morning at bedside. No acute events overnight. Patient continues to admit to neck pain and stiffness that is improved with warm compresses and tramadol. Will get c-spine and await neurology recommendations. Denies headache, blurry vision, photophobia, muscle weakness, CP, SOB, numbness, tingling, urinary complaints and abdominal pain. Objective - Vital Signs/Intake and Output Vital Signs (last 24 hours): Temp Pulse Resp BP Pulse Ox 97.5 F L 95 H 20 105/62 95 07/25/18 06:00 07/25/18 06:00 07/25/18 06:00 07/25/18 06:00 07/25/18 06:00 Intake and Output: 07/25/18 07/25/18 06:59 18:59 Intake Total 920 Balance 920 - Medications Medications: Current Medications Levetiracetam (Keppra 500mg Ivpb) 500 mg in 100 mls @ 400 mls/hr IVPB Q12 JONI Last Admin: 07/25/18 10:12 Dose: 400 mls/hr Sodium Chloride (Sodium Chloride 0.9%) 1,000 mls @ 200 mls/hr IV .Q5H JONI Lorazepam (Ativan) 2 mg IVP Q2H PRN; Protocol PRN Reason: Seizure activity Tramadol HCl (Ultram) 50 mg PO TID PRN PRN Reason: Pain, severe (8-10) Last Admin: 07/25/18 10:12 Dose: 50 mg - Labs Labs: 07/25/18 06:30 07/25/18 06:30 PT 12.8 SECONDS (9.4-12.5) H 07/21/18 16:00 INR 1.12 07/21/18 16:00 - Constitutional Appears: No Acute Distress - Head Exam Head Exam: ATRAUMATIC, NORMOCEPHALIC - Eye Exam Eye Exam: EOMI Pupil Exam: PERRL - Neck Exam Neck Exam: Full ROM, Normal Inspection. absent: Lymphadenopathy, Tenderness Additional comments: palpation of neck and upper shoulders is not associated with tenderness - Respiratory Exam Respiratory Exam: Clear to Ausculation Bilateral, NORMAL BREATHING PATTERN - Cardiovascular Exam Cardiovascular Exam: REGULAR RHYTHM, +S1, +S2 - GI/Abdominal Exam GI & Abdominal Exam: Normal Bowel Sounds. absent: Firm, Guarding - Extremities Exam Extremities Exam: Normal Inspection. absent: Calf Tenderness - Neurological Exam Neurological Exam: Alert, Awake, CN II-XII Intact, Oriented x3 Neuro motor strength exam: Left Upper Extremity: 5, Right Upper Extremity: 5, Left Lower Extremity: 5, Right Lower Extremity: 5 - Skin Skin Exam: Normal Color, Warm Assessment and Plan - Assessment and Plan (Free Text) Assessment: This is a 33 year old male with no PMH presenting to the hospital for management of first time witnessed seizure at home of uncertain etiology. Patient admits to continued pain in neck and upper shoulders. C-spine ordered. Awaiting recommendations from neurology. Per ID, no evidence of infection at this time. Plan: Seizures of unknown etiology -vital signs q8 -aspiration and seizure precautions -CT head, brain MRI, maxillofacial CT and CXR are unremarkable at this time -EEG shows abnormal EEG due to presence of mild diffuse slowing throughout the recording consistent with mild B/L cerebral dysfunction, but no evidence of any epileptiform activity. -continue keppra 500mg IV q12 -continue ativan prn -UDS is negative -headache possibly due to spinal tap. Will consider epidural blood patch to reduce symptoms -Neurology on consult, Dr. Hernández. Currently awaiting recommendations Rhabomyolysis -CPK today is pending -CPK yesterday was 24,354 from 10,620 2 days ago -We are hydrating patient aggresively, NS @ 200 at this time -Will continue to monitor. Etiology likely from seizure Encephalitis -LP: significant for glucose of 79 -WBC today is 7.8 from 9.8 yesterday -FATOU is positive, high -EBV level is elevated, suggestive of past [place] virus infection -HIV 4th gen is non reactive -[place], CMV, HSV, FTA-ABS, leptospira pending -TB QFT test is negative -CSF culture shows no growth after 3 days -blood culture shows no growth after 3 days -throat cultures shows beta strep group A -hepatitis panel is negative -ID on consult, Dr. Malcolm Transaminitis -AST/ALT today is 351/131 from previous 302/126. -We are considering etiology from rhabdomyolysis -Will continue to monitor Case seen with, reviewed and discussed with attending, <Valencia Patel - Last Filed: 07/26/18 14:31> Objective - Vital Signs/Intake and Output Vital Signs (last 24 hours): Temp Pulse Resp BP Pulse Ox 98.6 F 83 20 115/73 97 07/26/18 06:00 07/26/18 06:00 07/26/18 06:00 07/26/18 06:00 07/26/18 06:00 Intake and Output: 07/26/18 07/26/18 06:59 18:59 Intake Total 3500 260 Balance 3500 260 - Medications Medications: Current Medications Cyclobenzaprine HCl (Flexeril) 5 mg PO TID PRN PRN Reason: neck pain Last Admin: 07/26/18 09:51 Dose: 5 mg Sodium Chloride (Sodium Chloride 0.9%) 1,000 mls @ 200 mls/hr IV .Q5H JONI Last Admin: 07/26/18 09:54 Dose: 200 mls/hr Levetiracetam (Keppra) 500 mg PO BID JONI Lorazepam (Ativan) 2 mg IVP Q2H PRN; Protocol PRN Reason: Seizure activity - Labs Labs: 07/26/18 06:30 07/26/18 06:30 PT 12.8 SECONDS (9.4-12.5) H 07/21/18 16:00 INR 1.12 07/21/18 16:00 Attending/Attestation - Attestation I have personally seen and examined this patient.: Yes I have fully participated in the care of the patient.: Yes I have reviewed all pertinent clinical information, including history, physical exam and plan: Yes Notes (Text): Patient seen and examined by me at 10:30 AM with resident 07/25/18. Case including HPI, physical exam, and assessment and plan discussed with resident. Agree with above with following additions/corrections. Patient is a 33-year-old male with no significant past medical history that presented to the emergency room status post witnessed seizures at home. Patient states he feels ok. Complains of worsening of neck pain radiating to his head. Also with a headache today. States pain medications did help. Pain is constant and throbbing in nature. No change in vision. Sore throat resolved. No difficutly swallowing. No dizziness. No chest pain or shortness of breath. No fevers or chills. No nausea, vomiting, or abdominal pain. No dysuria. No seizure activity over night. Physical exam: General: Awake and alert, lying in bed in no acute distress HEENT: Positive healing abrasion above left eyebrow. Pupils equal reactive. No scleral icterus. Oropharynx is pink and moist. Positive right lateral tongue wound. Neck is supple. Cardiovascular: Normal rhythm. Normal S1, S2. No murmurs, rubs, or gallops appreciated Pulmonary: Normal respiratory effort. No rhonchi, rales or wheezing appreciated. Gastrointestinal: Soft, nondistended. Nontender. Positive bowel sounds all 4 quadrants, no guarding. Musculoskeletal: Normal range of motion all extremities, no calf tenderness, no edema appreciated. Central nervous system: CN2-12 grossly intact. AAO x 3 Dermatologic: Skin warm and dry Assessment and plan: Patient is a 33-year-old male with no significant past medical history that presented to the emergency room status post witnessed seizures at home 1. Neck pain/headache. Will get CT of cervical spin. Started on Flexeril. Continue to monitor. 2. 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 Continue IV fluids. Monitor CPK. Monitor renal function. 3. Elevated LFTs. Uptrending. Likely secondary to rhabdo. Hep panel negative. Continue to monitor. 4. New onset seizures. No more seizure activity. EEG per neurologist shows presence of mild diffuse slowing throughout the recording consistend with mild bilateral cerebral dysfunction. Continue Keppra. Acyclovir stopped. S/P lumbar puncture. Blood cultures with no growth so far. Urine culture contaminated. Throat culture negative. HIV negative. RPR negative. CSF cultures with no growth so far. Continue Ativan 2 mg every 2 hours when necessary. Continue seizure and aspiration precautions. Neurology following, recommendations appreciated. MRI brain per radiologist shows unremarkable pre and post contrast enhanced MRI of brain. CT head per radiologist shows no acute intracranial abnormality. Maxillofacial CT per radiologist shows no acute fracture or dislocation. 5. Hypophosphatemia. Resolved. Continue to monitor. 6. Anemia. Unsure of baseline H&H. Downtrended, likely dilutional. Continue to monitor for now. Case was discussed in detail with patient and patient's mother at bedside regarding current diagnosis and treatment plan.
--- NOTE | 2018-07-25 11:31 | CP.PCM.PCO ---
Physician Communication Note - Physician Communication Note Physician Communication Note: c/w keppra po. PT and flexirl for neck pain.
[2018-07-25] MEDS: Sodium Chloride 0.9% 1,000 ML IV SCH (11:45)
--- NOTE | 2018-07-25 13:37 | PN ---
Copied To: Jame Denis MD Attending MD: Jame Denis MD DATE: 07/25/2018 SUBJECTIVE: The patient is in bed, in no acute distress, nontoxic. PHYSICAL EXAMINATION: VITAL SIGNS: On exam, temperature is 97, blood pressure is 105/60, respiratory rate of 18. HEENT: Examination of HEENT is unremarkable. NECK: Supple. LUNGS: Have decreased breath sounds. HEART: Normal S1, S2. ABDOMEN: Soft, nontender. LABORATORY DATA: Laboratory examination reveals the patient's white count is 7.8, hemoglobin 11 and platelets of 204. Chemistries reveals a BUN of 7, creatinine of 0.8. LFTs are elevated. CPK is elevated. ASSESSMENT AND PLAN: A 33-year-old male, no significant past medical history, is admitted with new onset of seizures. No evidence of infection, negative MRI, negative herpes DNA PCR. Off of acyclovir at this point, off of antibiotics and cultures negative and cerebrospinal fluid cultures negative. Neurology is following the patient. We will follow with you. Etiology of the new onset of seizures as per Neurology. Jame Denis MD
--- NOTE | 2018-07-25 13:38 | CT ---
Date of service: 07/25/2018 PROCEDURE: CT Cervical Spine without contrast HISTORY: neck pain COMPARISON: None available. TECHNIQUE: Axial computed tomography images were obtained of the cervical spine without the use of intravenous contrast. Coronal and sagittal reformatted images were created and reviewed. Radiation dose: Total exam DLP = 500 mGy-cm. This CT exam was performed using one or more of the following dose reduction techniques: Automated exposure control, adjustment of the mA and/or kV according to patient size, and/or use of iterative reconstruction technique. FINDINGS: VERTEBRAE: No fracture. Normal alignment. No destructive bony lesion. DISCS/SPINAL CANAL/NEURAL FORAMINA: No significant central canal or neural foraminal stenosis. Discs heights are grossly preserved. PARASPINAL SOFT TISSUES: Unremarkable. OTHER FINDINGS: None. IMPRESSION: Unremarkable CT of the cervical spine.
[2018-07-25 14:16] LABS: CK-MB 3.6 ng/mL (0.0-3.6)
[2018-07-26] MEDS: Sodium Chloride 0.9% 1,000 ML IV SCH ×4 (01:36→15:32)
[2018-07-26 06:56] LABS: BASO # 0.03 K/mm3 (0.0-2.0); BASO % 0.4 % (0.0-3.0); EOS # 0.3 (0.0-0.7); EOS % 3.9 % (1.5-5.0); GRAN # 4.41 (1.4-6.5); GRAN % 63.7 % (50.0-68.0); HEMOGLOBIN 11.1 g/dL (14.0-18.0); LYMPH # 1.3 (1.2-3.4); LYMPH % 18.6 % (22.0-35.0); MEAN CELL VOLUME 82.2 fl (80.0-105.0); MEAN CORPUSCULAR HGB CONC 32.8 g/dl (31.0-37.0); MEAN PLATELET VOLUME 10.1 fl (7.0-11.0); MONO # 0.9 (0.1-0.6); MONO % 13.4 % (1.0-6.0); RBC 4.11 10^6/uL (3.5-6.1); WHITE BLOOD COUNT 6.9 10^3/ul (4.5-11.0)
[2018-07-26 07:12] LABS: ALB/GLOB RATIO 1.2 (1.1-1.8); ALBUMIN 3.5 g/dL (3.0-4.8); ALT/SGPT 130 U/L (7-56); AST/SGOT 261 U/L (17-59); BLOOD UREA NITROGEN 8 mg/dL (7-21); GFR NON-AFRICAN AMERICAN > 60
[2018-07-26] MEDS: levETIRAcetam 500mg IVPB 500 MG/100 ML BAG IVPB SCH (09:52)
--- NOTE | 2018-07-26 09:55 | CP.PCM.PN ---
Subjective - Date & Time of Evaluation Date of Evaluation: 07/26/18 Time of Evaluation: 08:40 - Subjective Subjective: Kun Pollock DO, PGY-2: Progress Note for Dr. Valencia Patel Patient was seen and examined at the bedside. He denies nausea, vomiting, fever , photophobia, visual disturbances or any worsening of headache. He reports having a good appetite. He reports that his headache and neck pain has improved from a 7/10 in severity to a 2/10 in. He is also able to ambulate without difficulty and reports urinating fine. Nurse reports no adverse events noted overnight. We informed the patient that we his muscle enzymes levels are trending down, but are still high. Objective - Vital Signs/Intake and Output Vital Signs (last 24 hours): Temp Pulse Resp BP Pulse Ox 98.6 F 83 20 115/73 97 07/26/18 06:00 07/26/18 06:00 07/26/18 06:00 07/26/18 06:00 07/26/18 06:00 Intake and Output: 07/26/18 07/26/18 06:59 18:59 Intake Total 3500 Balance 3500 - Medications Medications: Current Medications Cyclobenzaprine HCl (Flexeril) 5 mg PO TID PRN PRN Reason: neck pain Levetiracetam (Keppra 500mg Ivpb) 500 mg in 100 mls @ 400 mls/hr IVPB Q12 [facility] Last Admin: 07/25/18 21:02 Dose: 400 mls/hr Sodium Chloride (Sodium Chloride 0.9%) 1,000 mls @ 200 mls/hr IV .Q5H JONI Last Admin: 07/26/18 04:18 Dose: 200 mls/hr Lorazepam (Ativan) 2 mg IVP Q2H PRN; Protocol PRN Reason: Seizure activity - Labs Labs: 07/26/18 06:30 07/26/18 06:30 PT 12.8 SECONDS (9.4-12.5) H 07/21/18 16:00 INR 1.12 07/21/18 16:00 - Constitutional Appears: Well, Non-toxic - Head Exam Head Exam: NORMOCEPHALIC Additional comments: left forehead scab - Eye Exam Eye Exam: EOMI, Normal appearance, PERRL - ENT Exam ENT Exam: Mucous Membranes Moist, Normal Oropharynx - Neck Exam Neck Exam: Normal Inspection. absent: Tenderness - Respiratory Exam Respiratory Exam: Clear to Ausculation Bilateral, NORMAL BREATHING PATTERN. absent: Accessory Muscle Use - Cardiovascular Exam Cardiovascular Exam: RRR, +S1, +S2 - GI/Abdominal Exam GI & Abdominal Exam: Soft, Normal Bowel Sounds - Extremities Exam Extremities Exam: Normal Inspection. absent: Calf Tenderness, Pedal Edema - Neurological Exam Neurological Exam: Alert, Awake, Oriented x3 Neuro motor strength exam: Left Upper Extremity: 5, Right Upper Extremity: 5, Left Lower Extremity: 5, Right Lower Extremity: 5 - Psychiatric Exam Psychiatric exam: Normal Affect, Normal Mood - Skin Skin Exam: Dry, Intact, Normal Color, Warm Assessment and Plan - Assessment and Plan (Free Text) Assessment: This is a 33 year old male with no PMH presenting to the hospital for a first time witnessed seizure at home of unknown etiology and was also found to have rhabdomyolysis. The patient underwent a CT of head and a LP both of which were negative. 36-48 hours after his admission/lumbar puncture the patient developed cervical neck pain worse when sitting and standing, and less so when lying flat. He underwent a CT of the cervical spine that was unremarkable and was started on Flexeril based on Neurology's recommendation. The patient responded favorably to Flexeril. His EEG showed mild diffuse slowing throughout the recording consistent with mild bilateral cerebral dysfunction. We are currently continuing IV fluids at 200 ml/hr for his rhabdomyolysis. His CPK today was 14, 816, down from 26,000 yesterday. He can be discharged from a neurology standpoint on Keppra 500 mg q12h. Plan: Seizures of unknown etiology -vital signs q8 -aspiration and seizure precautions -CT head, brain MRI, maxillofacial CT and CXR are unremarkable at this time -EEG shows abnormal EEG due to presence of mild diffuse slowing throughout the recording consistent with mild B/L cerebral dysfunction, but no evidence of any epileptiform activity. -continue keppra 500mg IV q12 -continue ativan prn -UDS is negative -headache possibly due to spinal tap. Will consider epidural blood patch to reduce symptoms -Neurology on consult, Dr. Hernández. Currently awaiting recommendations Rhabomyolysis -CPK today 14, 816 -CPK yesterday was 26,000 -We are hydrating patient aggresively, NS @ 200 at this time -Will continue to monitor. Etiology likely from seizure Encephalitis -LP: significant for glucose of 79 -WBC today wnl -FATOU is positive, high -EBV level is elevated, suggestive of past [place] virus infection -HIV 4th gen is non reactive -[place], CMV, HSV, FTA-ABS, leptospira pending -TB QFT test is negative -CSF culture shows no growth after 3 days -blood culture shows no growth after 3 days -throat cultures shows beta strep group A -hepatitis panel is negative -ID on consult, Dr. Denis who recommends no antibiotics at this time Transaminitis -AST/ALT treniding down, likely secondary to rhabdomyolsyis -We are considering etiology from rhabdomyolysis -Will continue to monitor Case seen with, reviewed and discussed with attending, Dr. Valencia Patel
[2018-07-26] MEDS ORDERED: levETIRAcetam 500 mg/5ml UD cups PO SCH (18:00)
--- NOTE | 2018-07-26 22:26 | PN ---
Copied To: Jame Denis MD Attending MD: Jame Denis MD DATE: 07/26/2018 SUBJECTIVE: The patient is in bed, in no acute distress. PHYSICAL EXAMINATION: VITAL SIGNS: Temperature is 97, blood pressure is 106/60, respiratory rate of 18. HEENT: Unremarkable. NECK: Supple. LUNGS: Have decreased breath sounds. HEART: Normal S1, S2. ABDOMEN: Soft. LABORATORY EXAMINATION: Reveals a white count of 6.9, hemoglobin of 11, platelets of 187, collection is noted. Chemistries are noted. Urinalysis is noted and CSF is noted. Cultures are negative and serology is noted. Review of orders reveals the patient also had a CAT scan of cervical spine, which is unremarkable. Dr. Chivo Hernández's communication report is noted. ASSESSMENT/PLAN: This is a 33-year-old male seen earlier, was admitted with new onset of seizures, no evidence of infection and negative MRI, negative HIV, negative herpes DNA PCR, off of acyclovir at this point, off of antibiotics, all cultures negative as per Neurology and sleeping and awake EEG was done by Dr. Chivo Hernández. His input is greatly appreciated, which shows an abnormal EEG due to presence of a mild diffuse slowing through the record, recording consisting with a mild bilateral cerebral dysfunction and we will follow with you. Jame Denis MD
[2018-07-27] MEDS: Sodium Chloride 0.9% 1,000 ML IV SCH ×3 (01:12→15:33)
[2018-07-27 07:18] VITALS: RESP 20
--- NOTE | 2018-07-27 08:26 | PN ---
Copied To: Jame Denis MD Attending MD: Jame Denis MD DATE: 07/27/2018 SUBJECTIVE: The patient is in bed. PHYSICAL EXAMINATION: VITAL SIGNS: Temperature is 98, blood pressure is 106/60, respiratory rate of 20, heart rate of 81. HEENT: Examination of HEENT is unremarkable. NECK: Supple. LABORATORY DATA: The white count is 6.9, hemoglobin 11, platelets of 187. Chemistries reveals a BUN of 8, creatinine of 0.8. Urinalysis is noted. ASSESSMENT AND PLAN: A 33-year-old male, admitted with new onset of seizures. No evidence of infection. Negative MRI. Negative human immunodeficiency virus. Negative herpes DNA PCR on the cerebrospinal fluid. has been discontinued. Cultures are negative. Dr. Chivo Hernández's neurology evaluation is appreciated. Awake EEG is noted. Jame Denis MD
[2018-07-27] MEDS ORDERED: Sodium Chloride 0.9% 1,000 ML IV SCH ×2 (09:00→10:19)
[2018-07-27 09:10] LABS: BASO # 0.03 K/mm3 (0.0-2.0); BASO % 0.4 % (0.0-3.0); EOS # 0.3 (0.0-0.7); EOS % 3.8 % (1.5-5.0); GRAN # 4.37 (1.4-6.5); GRAN % 63.8 % (50.0-68.0); HEMOGLOBIN 11.5 g/dL (14.0-18.0); LYMPH # 1.2 (1.2-3.4); MEAN CELL VOLUME 82.8 fl (80.0-105.0); MEAN CORPUSCULAR HEMOGLOBIN 26.7 pg (25.0-35.0); MEAN CORPUSCULAR HGB CONC 32.3 g/dl (31.0-37.0); MEAN PLATELET VOLUME 10.6 fl (7.0-11.0); RBC 4.3 10^6/uL (3.5-6.1); WHITE BLOOD COUNT 6.9 10^3/ul (4.5-11.0)
[2018-07-27 09:46] LABS: ALB/GLOB RATIO 1.3 (1.1-1.8); ALBUMIN 3.5 g/dL (3.0-4.8); ALT/SGPT 114 U/L (7-56); AST/SGOT 199 U/L (17-59); BLOOD UREA NITROGEN 8 mg/dL (7-21); GFR NON-AFRICAN AMERICAN > 60
[2018-07-27 10:19] LABS: CK-MB 1.5 ng/mL (0.0-3.6)
--- NOTE | 2018-07-27 15:19 | CP.PCM.PN ---
<Kun Pollock - Last Filed: 07/27/18 15:30> Subjective - Date & Time of Evaluation Date of Evaluation: 07/27/18 Time of Evaluation: :18 - Subjective Subjective: Kun Pollock DO, PGY-2: Progress Note for Dr. Valencia Patel Patient was seen and examined at the bedside. He denies nausea, vomiting, fever , photophobia, visual disturbances or new-onset headache. He reports having a good appetite. He reports that his headache and neck pain have nearly resolved. He is also able to ambulate without difficulty and reports urinating fine. Nurse reports no adverse events noted overnight. We informed the patient that we his muscle enzymes levels are trending down, but are still high. Objective - Vital Signs/Intake and Output Vital Signs (last 24 hours): Temp Pulse Resp BP Pulse Ox 97.7 F 74 20 109/67 99 07/27/18 14:00 07/27/18 14:00 07/27/18 14:00 07/27/18 14:00 07/27/18 14:00 Intake and Output: 07/27/18 07/27/18 06:59 18:59 Intake Total 3520 Balance 3520 - Medications Medications: Current Medications Cyclobenzaprine HCl (Flexeril) 5 mg PO TID PRN PRN Reason: neck pain Last Admin: 07/26/18 09:51 Dose: 5 mg Sodium Chloride (Sodium Chloride 0.9%) 1,000 mls @ 150 mls/hr IV .Q6H40M [facility] Levetiracetam (Keppra) 500 mg PO BID JONI Last Admin: 07/27/18 10:25 Dose: 500 mg Lorazepam (Ativan) 2 mg IVP Q2H PRN; Protocol PRN Reason: Seizure activity - Labs Labs: 07/27/18 08:00 07/27/18 08:00 PT 12.8 SECONDS (9.4-12.5) H 07/21/18 16:00 INR 1.12 07/21/18 16:00 - Constitutional Appears: Well, Non-toxic - Head Exam Head Exam: NORMAL INSPECTION Additional comments: left scab on forehead - Eye Exam Eye Exam: EOMI, Normal appearance - ENT Exam ENT Exam: Mucous Membranes Moist - Neck Exam Neck Exam: Normal Inspection - Respiratory Exam Respiratory Exam: Clear to Ausculation Bilateral, NORMAL BREATHING PATTERN. absent: Accessory Muscle Use - Cardiovascular Exam Cardiovascular Exam: RRR, +S1, +S2 - GI/Abdominal Exam GI & Abdominal Exam: Soft, Normal Bowel Sounds. absent: Distended, Rebound - Extremities Exam Extremities Exam: Normal Inspection. absent: Calf Tenderness - Neurological Exam Neurological Exam: Alert, Awake, Normal Gait, Oriented x3 - Psychiatric Exam Psychiatric exam: Normal Affect, Normal Mood - Skin Skin Exam: Dry, Intact, Normal Color, Warm Assessment and Plan - Assessment and Plan (Free Text) Assessment: This is a 33 year old male with no PMH presenting to the hospital for a first time witnessed seizure at home of unknown etiology and was also found to have rhabdomyolysis. The patient underwent a CT of head and a LP both of which were negative. 36-48 hours after his admission/lumbar puncture the patient developed cervical neck pain worse when sitting and standing, and less so when lying flat. He underwent a CT of the cervical spine that was unremarkable and was started on Flexeril based on Neurology's recommendation. The patient responded favorably to Flexeril. His EEG showed mild diffuse slowing throughout the recording consistent with mild bilateral cerebral dysfunction. We are currently continuing IV fluids at 200 ml/hr for his rhabdomyolysis. His CPK today was 8466 , down from 14,000 yesterday. He can be discharged from a neurology standpoint on Keppra 500 mg q12h. Plan: Seizures of unknown etiology -vital signs q8 -aspiration and seizure precautions -CT head, brain MRI, maxillofacial CT and CXR are unremarkable at this time -EEG shows abnormal EEG due to presence of mild diffuse slowing throughout the recording consistent with mild B/L cerebral dysfunction, but no evidence of any epileptiform activity. -continue keppra 500mg IV q12 -continue ativan prn -UDS is negative -headache possibly due to spinal tap. Will consider epidural blood patch to reduce symptoms -Neurology on consult, Dr. Hernández. Currently awaiting recommendations Post-lumbar puncture headache, resolved - Flexeril 5 mg TID PRN Rhabomyolysis -CPK today was 8,466 -CPK yesterday was 10, -We are hydrating patient aggresively, NS @ 200 at this time -Will continue to monitor. Etiology likely from seizure Encephalitis, ruled out -LP: significant for glucose of 79 -WBC today wnl -FATOU is positive, high -EBV level is elevated, suggestive of past [place] virus infection -HIV 4th gen is non reactive -[place], CMV, HSV, FTA-ABS, leptospira pending -TB QFT test is negative -CSF culture shows no growth after 3 days -blood culture shows no growth after 3 days -throat cultures shows beta strep group A -hepatitis panel is negative -ID on consult, Dr. Denis who recommends no antibiotics at this time Transaminitis -AST/ALT treniding down, likely secondary to rhabdomyolsyis rhabdomyolysis -Will continue to monitor Disposition: Patient to follow up with Dr. Chivo Hernández within 3-5 days of discharge. Patient to not drive.Patient to continue Keppra 500 mg q12h. Patient to follow up with PMD, Dr. Kearney, within 3-5 days after discharge. Case was reviewed and discussed with attending physician. Dr. Valencia Patel <Valencia Patel R - Last Filed: 07/28/18 11:36> Objective - Vital Signs/Intake and Output Vital Signs (last 24 hours): Temp Pulse Resp BP Pulse Ox 97.6 F 70 20 118/64 99 07/28/18 06:00 07/28/18 06:00 07/28/18 06:00 07/28/18 06:00 07/28/18 06:00 Intake and Output: 07/28/18 07/28/18 06:59 18:59 Intake Total 900 Balance 900 - Medications Medications: Current Medications Cyclobenzaprine HCl (Flexeril) 5 mg PO TID PRN PRN Reason: neck pain Last Admin: 07/26/18 09:51 Dose: 5 mg Sodium Chloride (Sodium Chloride 0.9%) 1,000 mls @ 150 mls/hr IV .Q6H40M JONI Last Admin: 07/28/18 04:47 Dose: 150 mls/hr Levetiracetam (Keppra) 500 mg PO BID JONI Last Admin: 07/28/18 09:01 Dose: 500 mg Lorazepam (Ativan) 2 mg IVP Q2H PRN; Protocol PRN Reason: Seizure activity - Labs Labs: 07/28/18 06:00 07/28/18 06:00 PT 12.8 SECONDS (9.4-12.5) H 07/21/18 16:00 INR 1.12 07/21/18 16:00 Attending/Attestation - Attestation I have personally seen and examined this patient.: Yes I have fully participated in the care of the patient.: Yes I have reviewed all pertinent clinical information, including history, physical exam and plan: Yes Notes (Text): Patient seen and examined by me at 10:40 AM with resident 07/27/18. Case including HPI, physical exam, and assessment and plan discussed with resident. Agree with above with following additions/corrections. Patient is a 33-year-old male with no significant past medical history that presented to the emergency room status post witnessed seizures at home. Patient states he feels ok. Neck pain is better. No more headaches. No dizziness. No chest pain or shortness of breath. No fevers or chills. No nausea , vomiting, or abdominal pain. No dysuria. No more seizure activity. Patient is ambulating well. Tolerating diet. Physical exam: General: Awake and alert, lying in bed in no acute distress HEENT: Positive healing abrasion above left eyebrow. Pupils equal reactive. No scleral icterus. Oropharynx is pink and moist. Positive healing lateral tongue wound. Neck is supple. Cardiovascular: Normal rhythm. Normal S1, S2. No murmurs, rubs, or gallops appreciated Pulmonary: Normal respiratory effort. No rhonchi, rales or wheezing appreciated. Gastrointestinal: Soft, nondistended. Nontender. Positive bowel sounds all 4 quadrants, no guarding. Musculoskeletal: Normal range of motion all extremities, no calf tenderness, no edema appreciated. Central nervous system: CN2-12 grossly intact. AAO x 3 Dermatologic: Skin warm and dry Assessment and plan: Patient is a 33-year-old male with no significant past medical history that presented to the emergency room status post witnessed seizures at home 1. Neck pain/headache. Improved. Headache resolved. Continue flexeril prn. CT cervical spine per radiologist shows unremarkable CT of the cervical spine. Continue warm compresses. Continue to monitor 2. Rhabdomylosis. Continues to improve. CPK downtrending. Secondary to seizures. Continue IV fluids. Continue to monitor CPK. Continue to monitor renal function. 3. Elevated LFTs. Continues to improve. Downtrending. Likely secondary to rhabdo. Hep panel negative. Continue to monitor. 4. New onset seizures. No more seizure activity. EEG per neurologist shows presence of mild diffuse slowing throughout the recording consistend with mild bilateral cerebral dysfunction. Continue Keppra. Patient to follow up with neurology within one week of discharge per neurology. Patient is cleared for discharge per Dr. Hernández. Acyclovir stopped. S/P lumbar puncture. Blood cultures with no growth so far. Urine culture contaminated. Throat culture negative. HIV negative. RPR negative. CSF cultures with no growth so far. Neurology following, recommendations appreciated. MRI brain per radiologist shows unremarkable pre and post contrast enhanced MRI of brain. CT head per radiologist shows no acute intracranial abnormality. Maxillofacial CT per radiologist shows no acute fracture or dislocation. 5. Hypophosphatemia. Resolved. Continue to monitor. 6. Anemia. Unsure of baseline H&H. Likely dilutional. H&H stable. Continue to monitor for now. Case was discussed in detail with patient and patient's mother at bedside regarding current diagnosis and treatment plan.
[2018-07-27 15:20] LABS: CK-MB 1.2 ng/mL (0.0-3.6)
[2018-07-28] MEDS: Sodium Chloride 0.9% 1,000 ML IV SCH (04:47)
[2018-07-28 07:07] VITALS: BP 118/64; PULSE 70; TEMP 97.6; O2SAT 99
[2018-07-28 07:17] LABS: ALB/GLOB RATIO 1.2 (1.1-1.8); ALBUMIN 3.8 g/dL (3.0-4.8); ALT/SGPT 111 U/L (7-56); AST/SGOT 139 U/L (17-59); BLOOD UREA NITROGEN 8 mg/dL (7-21); CALCIUM 9.2 mg/dL (8.4-10.5); GFR NON-AFRICAN AMERICAN > 60
[2018-07-28 07:27] LABS: BASO # 0.03 K/mm3 (0.0-2.0); BASO % 0.4 % (0.0-3.0); EOS # 0.3 (0.0-0.7); EOS % 3.8 % (1.5-5.0); GRAN # 4.4 (1.4-6.5); GRAN % 63.8 % (50.0-68.0); HEMOGLOBIN 12.4 g/dL (14.0-18.0); LYMPH # 1.5 (1.2-3.4); MEAN CELL VOLUME 81.8 fl (80.0-105.0); MEAN CORPUSCULAR HEMOGLOBIN 26.9 pg (25.0-35.0); MEAN CORPUSCULAR HGB CONC 32.9 g/dl (31.0-37.0); MEAN PLATELET VOLUME 10.3 fl (7.0-11.0); MONO # 0.8 (0.1-0.6); RBC 4.61 10^6/uL (3.5-6.1); RED CELL DISTRIBUTION WIDTH 13.1 % (11.5-14.5); WHITE BLOOD COUNT 6.9 10^3/ul (4.5-11.0)
[2018-07-28 10:23] LABS: CK-MB 1.1 ng/mL (0.0-3.6)
--- NOTE | 2018-07-28 13:35 | CP.PCM.DIS ---
Provider - Provider Date of Admission: 07/21/18 19:00 Attending physician: Valencia Patel DO Primary care physician: Taz Toro DO Time Spent in preparation of Discharge (in minutes): 60 Hospital Course - Lab Results Lab Results: Micro Results 07/21/18 19:30 Cerebral Spinal Fluid Gram Stain - Final 07/21/18 19:30 Cerebral Spinal Fluid CSF Culture - Final NO GROWTH AFTER 5 DAYS 07/21/18 19:49 Blood-Venous Blood Culture - Final NO GROWTH AFTER 5 DAYS 07/21/18 19:49 Blood-Venous Gram Stain - Final TEST NOT PERFORMED 07/21/18 19:30 Throat Group A Strep Throat Culture - Final NO BETA STREP GROUP A ISOLATED. Most Recent Lab Values WBC 6.9 10^3/ul (4.5-11.0) 07/28/18 06:00 RBC 4.61 10^6/uL (3.5-6.1) 07/28/18 06:00 Hgb 12.4 g/dL (14.0-18.0) L 07/28/18 06:00 Hct 37.7 % (42.0-52.0) L 07/28/18 06:00 MCV 81.8 fl (80.0-105.0) 07/28/18 06:00 MCH 26.9 pg (25.0-35.0) 07/28/18 06:00 MCHC 32.9 g/dl (31.0-37.0) 07/28/18 06:00 RDW 13.1 % (11.5-14.5) 07/28/18 06:00 Plt Count 245 10^3/uL (120.0-450.0) 07/28/18 06:00 MPV 10.3 fl (7.0-11.0) 07/28/18 06:00 Gran % 63.8 % (50.0-68.0) 07/28/18 06:00 Lymph % (Auto) 21.0 % (22.0-35.0) L 07/28/18 06:00 Garvin % (Auto) 11.0 % (1.0-6.0) H 07/28/18 06:00 Eos % (Auto) 3.8 % (1.5-5.0) 07/28/18 06:00 Baso % (Auto) 0.4 % (0.0-3.0) 07/28/18 06:00 Gran # 4.40 (1.4-6.5) 07/28/18 06:00 Lymph # (Auto) 1.5 (1.2-3.4) 07/28/18 06:00 Garvin # (Auto) 0.8 (0.1-0.6) H 07/28/18 06:00 Eos # (Auto) 0.3 (0.0-0.7) 07/28/18 06:00 Baso # (Auto) 0.03 K/mm3 (0.0-2.0) 07/28/18 06:00 ESR 23 mm/hr (0.0-15.0) H 07/21/18 16:00 PT 12.8 SECONDS (9.4-12.5) H 07/21/18 16:00 INR 1.12 07/21/18 16:00 pO2 50 mm/Hg (30-55) 07/21/18 19:53 VBG pH 7.35 (7.32-7.43) 07/21/18 19:53 VBG pCO2 46.0 (40-60) 07/21/18 19:53 VBG HCO3 25.4 mmol/l (21-28) 07/21/18 19:53 VBG Total CO2 26.8 mmol.L (22-28) 07/21/18 19:53 VBG O2 Sat (Calc) 89.6 % (40-65) H 07/21/18 19:53 VBG Base Excess -0.6 mmol/L (0.0-2.0) L 07/21/18 19:53 VBG Potassium 3.5 mmol/L (3.6-5.2) L 07/21/18 19:53 Sodium 140.0 mmol/L (132-148) 07/21/18 19:53 Chloride 108.0 mmol/L (98-107) H 07/21/18 19:53 Glucose 110 mg/dl (75-110) 07/21/18 19:53 Lactate 1.2 mmol/L (0.7-2.1) 07/21/18 19:53 FiO2 21.0 % 07/21/18 19:53 Sodium 144 mmol/L (132-148) 07/28/18 06:00 Potassium 4.3 mmol/L (3.6-5.0) 07/28/18 06:00 Chloride 105 mmol/L (98-107) 07/28/18 06:00 Carbon Dioxide 27 mmol/L (21-33) 07/28/18 06:00 Anion Gap 16 (10-20) 07/28/18 06:00 BUN 8 mg/dL (7-21) 07/28/18 06:00 Creatinine 0.8 mg/dl (0.8-1.5) 07/28/18 06:00 Est GFR ( Amer) > 60 07/28/18 06:00 Est GFR (Non-Af Amer) > 60 07/28/18 06:00 Random Glucose 87 mg/dL (70-110) 07/28/18 06:00 Calcium 9.2 mg/dL (8.4-10.5) 07/28/18 06:00 Phosphorus 2.6 mg/dL (2.5-4.5) 07/22/18 06:30 Magnesium 2.2 mg/dL (1.7-2.2) 07/22/18 06:30 Total Bilirubin 1.2 mg/dL (0.2-1.3) 07/28/18 06:00 AST 139 U/L (17-59) H D 07/28/18 06:00 ALT 111 U/L (7-56) H 07/28/18 06:00 Alkaline Phosphatase 83 U/L (38-126) 07/28/18 06:00 Total Creatine Kinase 4527 U/L (35-230) H 07/28/18 06:00 CK-MB (CK-2) 1.1 ng/mL (0.0-3.6) 07/28/18 06:00 CK-MB (CK-2) % 0.3 % (2.5-3.0) L 07/22/18 06:30 C-Reactive Protein 21.50 mg/L (0.0-9.9) H 07/22/18 06:30 Total Protein 6.9 g/dL (5.8-8.3) 07/28/18 06:00 Albumin 3.8 g/dL (3.0-4.8) 07/28/18 06:00 Globulin 3.1 gm/dL 07/28/18 06:00 Albumin/Globulin Ratio 1.2 (1.1-1.8) 07/28/18 06:00 Vitamin B12 > 1000 pg/mL (239-931) H 07/22/18 06:30 Folate 16.2 ng/mL 07/22/18 06:30 Venous Blood Potassium 3.5 mmol/L (3.6-5.2) L 07/21/18 19:53 Urine Color Straw (YELLOW) 07/21/18 16:00 Urine Appearance Clear (CLEAR) 07/21/18 16:00 Urine pH 6.0 (4.7-8.0) 07/21/18 16:00 Ur Specific [place] >= 1.030 (1.005-1.035) 07/21/18 16:00 Urine Protein 100 mg/dL (<30 mg/dL) H 07/21/18 16:00 Urine Glucose (UA) Negative mg/dL (NEGATIVE) 07/21/18 16:00 Urine Ketones Trace mg/dL (NEGATIVE) H 07/21/18 16:00 Urine Blood Moderate (NEGATIVE) H 07/21/18 16:00 Urine Nitrate Negative (NEGATIVE) 07/21/18 16:00 Urine Bilirubin Negative (NEGATIVE) 07/21/18 16:00 Urine Urobilinogen 0.2 E.U./dL (<1 E.U./dL) 07/21/18 16:00 Ur Leukocyte Esterase Negative Landy/uL (NEGATIVE) 07/21/18 16:00 Urine RBC 10 - 15 /hpf (0-2) 07/21/18 16:00 Urine WBC 1 - 3 /hpf (0-6) 07/21/18 16:00 Ur Epithelial Cells 1 - 3 /hpf (0-5) 07/21/18 16:00 Urine Bacteria Mod (NEG) 07/21/18 16:00 Urine Other Usperm 07/21/18 16:00 Fluid Type Spinal fluid 07/21/18 19:30 CSF Volume 2 mL (0-1) H 07/21/18 19:30 CSF Appearance Clear/colorless (CLEAR) 07/21/18 19:30 CSF WBC 2.2 /uL (0.0-5.0) 07/21/18 19:30 CSF RBC 1.0 /uL (0.0-0.0) H 07/21/18 19:30 CSF Total Cell Counted 0 (0-0) 07/21/18 19:30 CSF Monos/Macrophages TEST NOT PERFORMED 07/21/18 19:30 CSF Comment No 07/21/18 19:30 CSF Glucose 79 mg/dL (40-70) H 07/21/18 19:30 CSF LDH 16 U/L (<=25) 07/21/18 19:30 CSF Total Protein 55.0 mg/dL (12-60) 07/21/18 19:30 Urine Opiates Screen Negative (NEGATIVE) 07/21/18 16:00 Urine Methadone Screen Negative (NEGATIVE) 07/21/18 16:00 Ur Barbiturates Screen Negative (NEGATIVE) 07/21/18 16:00 Ur Phencyclidine Scrn Negative (NEGATIVE) 07/21/18 16:00 Ur Amphetamines Screen Negative (NEGATIVE) 07/21/18 16:00 U Benzodiazepines Scrn Negative (NEGATIVE) 07/21/18 16:00 U Oth Cocaine Metabols Negative (NEGATIVE) 07/21/18 16:00 U Cannabinoids Screen Negative (NEGATIVE) 07/21/18 16:00 Alcohol, Quantitative < 10 mg/dL (0-10) 07/21/18 16:00 FATOU Nuclear Membr Pat Positive (Negative) H 07/22/18 06:30 RPR Nonreactive (NONREACTIVE) 07/22/18 06:30 T.pallidum Ab (FTA-ABS) Nonreactive (Nonreactive) 07/22/18 06:30 Anti-NMDA Rec Method See note 07/21/18 19:30 Anti-NMDA Technical Res See note 07/21/18 19:30 Anti-NMDA Rec Interp See note 07/21/18 19:30 Anti-NMDA Rec Comment See note 07/21/18 19:30 Anti-NMDA Rec Reference See note 07/21/18 19:30 [place] RNA (RT-PCR) Not detected (Not Detected) 07/21/18 17:17 EBV Capsid Ag IgG Ab >750.00 U/mL H 07/22/18 06:30 EBV Capsid Ag IgM Ab <36.00 U/mL 07/22/18 06:30 EBV EA IgG Ab Interp <9.00 U/mL (<9.00) 07/22/18 06:30 EBV Nuclear Antigen Ab 159.00 U/mL H 07/22/18 06:30 EBV Interpretation See note 07/22/18 06:30 Hepatitis A IgM Ab Negative (NEGATIVE) 07/21/18 17:20 Hep Bs Antigen Negative (NEGATIVE) 07/21/18 17:20 Hep B Core IgM Ab Negative (NEGATIVE) 07/21/18 17:20 Hepatitis C Antibody Negative (NEGATIVE) 07/21/18 17:20 HSV Source Description Csf 07/21/18 19:30 HSV I DNA PCR Not detected (Not Detected) 07/21/18 19:30 HSV II DNA PCR Not detected (Not Detected) 07/21/18 19:30 HIV 1&2 Ag/Ab, 4th Gen Nonreactive (Nonreactive) 07/22/18 06:30 Leptospira Antibody TNP 07/22/18 06:30 TB Test (QFT) Nil Cancelled 07/22/18 06:30 TB Test Mitogen - Nil Cancelled 07/22/18 06:30 TB Test TB - Nil Cancelled 07/22/18 06:30 TB Test (QFT) Cancelled 07/22/18 06:30 - Hospital Course Hospital Course: 33 yo male with no significant PMH presented to the hospital for a first time witnessed seizure at home of unknown etiology. CT head, brain MRI, and maxillofacial CT were unremarkable. EEG was abnormal, presence of mild diffuse slowing throughout the recording consistent with mild B/L cerebral dysfunction, but no evidence of any epileptiform activity. Lumbar puncture and UDS was negative. Neurology was consulted. recommended keppra 500mg IV q12. ID was also consulted to rule out infectious cause of seizure. HIV an TB were negative. CSF culture showed no growth. No signs of infectious ID recommended no antibiotics. During hospital course patient developed headache with neck pain s/p lumbar puncture. He underwent a CT of the cervical spine that was unremarkable and was started on Flexeril based on Neurology's recommendation. Patient was also treated for rhabomyolysis during hospital course. Patient was started on IVF and CPK was trended. Transaminitis was also noted, likely secondary to rhabdomyolsyis, was down trending. Neurology recommended discharge with follow up outpatient and patient was instructed not to drive. Discharge instructions were discussed with patient he is in agreement, all questions answered. Discharge Exam - Head Exam Head Exam: NORMAL INSPECTION - Eye Exam Eye Exam: EOMI, Normal appearance - ENT Exam ENT Exam: Mucous Membranes Moist - Respiratory Exam Respiratory Exam: Clear to PA & Lateral, NORMAL BREATHING PATTERN, UNREMARKABLE. absent: Decreased Breath Sounds, Rales, Rhonchi, Wheezes, Respiratory Distress - Cardiovascular Exam Cardiovascular Exam: REGULAR RHYTHM, +S1, +S2. absent: Bradycardia, Tachycardia , Diastolic murmur, Systolic Murmur - GI/Abdominal Exam GI & Abdominal Exam: Normal Bowel Sounds, Unremarkable. absent: Distended, Firm , Guarding, Soft, Tenderness - Extremities Exam Extremities exam: normal inspection - Neurological Exam Neurological exam: Alert, Oriented x3 - Psychiatric Exam Psychiatric exam: Normal Affect, Normal Mood - Skin Skin Exam: Dry, Intact, Normal Color, Warm Discharge Plan - Discharge Medications Prescriptions: Cyclobenzaprine [Flexeril] 5 mg PO TID PRN #9 tab PRN Reason: neck pain levETIRAcetam [Keppra] 500 mg PO BID #60 tab - Follow Up Plan Condition: FAIR Disposition: HOME/ ROUTINE Instructions: Seizures, Adult (DC), Dizziness, Nonvertigo, (DC) Additional Instructions: Follow up with Neurology, Dr. Hernández, with in 1 week, you will need keppra level checked Follow up with primary care doctor within 1 week to repeat with blood work for elevated liver numbers Start Keppra 500mg twice a day may use flexril as needed for neck pain Do NOT drive until seen by neurology and cleared to drive. Drink plenty of water for the next 3-4 days Return to ED if symptoms return Referrals: Chivo Hernández MD [Staff Provider] - Taz Toro DO [Primary Care Provider] -
--- NOTE | 2018-07-28 14:28 | PN ---
Copied To: Jame Denis MD Attending MD: Jame Denis MD DATE: 07/28/2018 SUBJECTIVE: The patient is in bed, in no acute distress, nontoxic. PHYSICAL EXAMINATION: VITAL SIGNS: On exam, temperature is 97, blood pressure is 118/60, respiratory 20. HEENT: Examination of HEENT is unremarkable. NECK: Supple. LUNGS: Have decreased breath sounds. HEART: Normal S1, S2. ABDOMEN: Soft. LABORATORY DATA: Laboratory examination reveals a white count of 6.9, hemoglobin of 12. Chemistries are noted and urinalysis is noted. Toxicology is noted. ASSESSMENT AND PLAN: A 33-year-old male admitted with new onset of seizures. No evidence of infection. Negative MRI, negative human immunodeficiency virus, negative PCR. CSF cultures negative. Blood cultures negative. Dr. Chivo Hernández's note is reviewed. Jame Denis MD
[2018-07-29 11:51] LABS: SOURCE Blood
== END 2018-07-28 11:42 | disposition home or self-care (01) | DRG 101 ==
LOC: ED 15:43 → ERH 19:00 → 5RNO 21:21
PROVIDERS: ADMIT Internal Medicine; ATTEND Hospitalist
DX: R56.9 Unspecified convulsions (principal); M62.82 Rhabdomyolysis; D64.9 Anemia, unspecified; E83.39 Other disorders of phosphorus metabolism; Z82.0 Family history of epilepsy and other diseases of the nervous system; Z82.49 Family history of ischemic heart disease and other diseases of the circulatory system; Z83.3 Family history of diabetes mellitus